=== PATIENT | male | born 1990 | race Caucasian/White ===

== ENCOUNTER → 2018-10-03 | Outpatient (CLI) | payer SELFPAY | END | disposition home or self-care (01) | PROVIDERS: Family Provider Family Medicine; PCP Family Medicine; Referring Provider Nurse Practitioner Primary Care; Visit Provider Nurse Practitioner Primary Care | DX: E66.9 Obesity, unspecified (principal) ==

== ENCOUNTER 2019-03-11 05:40 | Observation (INO) | payer OTHER, SELFPAY ==
[2019-03-11] VITALS (16 sets, daily range): BP systolic 119–160; BP diastolic 46–94; PULSE 80–106; RESP 15–18; TEMP 36.4–37.2; O2SAT 94–100; BMI 31.3; BMI 31.1
--- NOTE | 2019-03-11 | APP_PTH ---
PATIENT: ELOY BOSS LOC: MS3 U#:[id number] AGE/SX: 28/M ROOM: [facility]315 RE03/11/[address]: Dr. Holden Morris MD : 1990 BED: 1 DIS: 03/11/2019 SPEC #: [id number] RECD: 03/12/19 10:13 STATUS: MONICA REQ #: [id number] JEOVANNY: 03/11/19 00:[address]: Holden Morris DEPT: SURGICAL PATHOLOGY RECD BY: Merritt Chong ENTERED: 03/12/19 12:09 SP TYPE: APPENDIX OTHR DR: Dr. Gerald London MD Tissues: Appendix, NOS Procedures: Surgery Specimen Level III HEADER OPERATION: Laparoscopic appendectomy PRE-OP DIAGNOSIS: Appendicitis TISSUE SUBMITTED: Appendix MICROSCOPIC DIAGNOSIS Appendix, appendectomy: Acute appendicitis and periappendicitis. CELINE:nena 03/13/19 MICROSCOPIC DESCRIPTION Slides are reviewed. GROSS DESCRIPTION Received is one container labeled with the patient's name and designated appendix. The specimen consists of an L-shaped appendix measuring 10 cm in length and 0.6 cm in diameter. The attached periappendiceal adipose tissue measures up to 2 cm in width. The serosa is congested. No obvious perforation is identified. The lumen contains purulent fecal material. No fecalith is identified. Mining Engineer sections are submitted in one cassette. / SJ:nena 03/12/19 TC:2 CPT: 68318
--- NOTE | 2019-03-11 05:48 | CT_ITS ---
STUDY: CT ABDOMEN AND PELVIS WITH CONTRAST REASON FOR EXAM: Male, 28 years old. Right lower quadrant abdominal pain with nausea. No previous abdominal surgery. RADIATION DOSAGE (If Supplied By Facility): CTDIvol = ( 14.89 ) mGy, DLP = ( 1042.27 ) mGycm TECHNIQUE: Transaxial images were obtained from the dome of the diaphragm to the symphysis pubis with oral contrast. 100 mL of IV Isovue-300 was administered. Sagittal and coronal images were reconstructed. Individualized dose optimization techniques were used for this CT. COMPARISON: Prior comparison studies are not available for review at this time. FINDINGS: The visualized lung bases are unremarkable. The visualized portions of the heart are within normal limits. Normal liver. Normal gallbladder and extrahepatic biliary system. Normal spleen. Normal pancreas. Normal bilateral adrenal glands. Normal right kidney. Normal left kidney. Normal visualized stomach. There is no evidence for dilated bowel, ascites or pneumoperitoneum. Small bowel has a grossly normal appearance. Stool is visible throughout the colon with scattered diverticula. There appears to be a focal area of abnormal inflammation of the distal appendix where the wall is thin and the appendix is dilated measuring up to 11 mm in greatest transverse dimension. Most of the appendix appears to be normal. Normal abdominal aorta. There is venous distention of the inferior vena cava (IVC). Normal retroperitoneum. Normal urinary bladder. Normal visualized prostate gland. Normal abdominal wall. There is a mild anterolisthesis at L5-S1 with what appears to be unilateral left-sided spondylolysis of L5. The remaining imaged thoracic and lumbar vertebral bodies have normal height and alignment. CT/Abdomen/Pelvis WITH Contrast IMPRESSION: CT findings suggest early acute appendicitis involving the distal appendix. Differential considerations include small mucocele in the distal appendix. There is no evidence for abscess. N.B. : The above information has been verbally conveyed by Karissa Maloney MD to Dr. Sharon MD, on 03/11/2019 08:16:36 (ET). Electronically Signed: Karissa Maloney MD at 8:22 EST , Service support ,
--- NOTE | 2019-03-11 05:56 | ED.DCSUM_ITS ---
- ER Visit Summary Date of Service: 03/11/19 Chief Complaint: Abdominal pain History of Present Illness: The patient is a 28 M who presents with abdominal pain. Pain started throughout the day yesterday. Gradually got worse. He had difficulty sleeping overnight. The pain is all over, but worse in his right lower quadrant. Does not radiate or migrate. It is currently 3 out of 10. Nothing seemed to bring it on or make it worse. Nothing seems to make it better. He did try some Zofran for nausea. He has no other associated symptoms like vomiting, bowel changes, symptoms, fevers. No history of abdominal surgery. Physical Examination: Afebrile and vital signs are unremarkable. Heart regular rate. No respiratory distress. Abdomen shows mild tenderness diffusely, worse in the right lower quadrant. No guarding or rebound. No other pertinent findings on exam. Test Results: Labs, urinalysis, CT pending. Emergency Department Course and Treatment: Patient is an otherwise healthy young male with no surgical history. He has abdominal pain which seems to be worse in the right lower quadrant. I am concerned for appendicitis. Will check labs, urine, and imaging. Patient had Zofran prior to arrival. He declined pain medicine. Will monitor. CBC, CMP, lipase, urinalysis unremarkable. Patient had increasing pain and was treated with morphine. We are awaiting CT results. The oncoming doctor will check the results. Disposition pending CT results. Treatment Plan: As above Disposition: Pending CT results Impression: 1. Abdominal pain This note was generated with [employer] dictation software. It may contain incorrect words, spelling, and punctuation that were not noted in review of the chart prior to signing ED Disposition - Plan for ED Patient: Referrals: Gerald London MD [Primary Care Provider] -
[2019-03-11] MEDS: 0.9% Normal Saline 1,000 ML 1000 ML IV (05:59)
[2019-03-11 06:02] LABS: Absolute Lymphocyte Count 3.01 X10^3/uL (0.83-4.51); Absolute Neutrophil Count 6.9 X10^3/uL (2.0-7.7); Basophil# 0.04 X10^3/uL; Basophil% 0.4 % (0-1); Eosinophils% 0.9 % (0-5); Hematocrit 48.1 % (40-54); Hemoglobin 17.2 g/dL (13.0-16.5); Lymphocyte # 3.01 X10^3/ul (4.0); Lymphocyte % 27.6 % (19-41); Mean Corp Hgb Conc 35.8 g/dL (32-36); Mean Corpuscular Hgb 30.1 pg (27.0-32.0); Mean Corpuscular Volume 84.2 fL (80-94); Monocyte# 0.78 X10^3/uL; Monocyte% 7.2 % (0-10); NRBC Flagged by Analyzer 0 % (0-5); Neutrophil # 6.94 X10^3/uL (2.7-7.7); Neutrophil % 63.6 % (47-70); Platelet Count 182 K/mm3 (150-450); RBC Distribution Width CV 11.9 % (11.6-14.6); RBC Distribution Width SD 35.9 fl (35.1-43.9); Red Blood Count 5.71 M/mm3 (4.6-6.2); White Blood Count 10.9 K/mm3 (4.4-11.0)
[2019-03-11 06:03] LABS: Bacteria 0 SEEN /hpf (None Seen); Mucous, Urine 0 SEEN /hpf (<or=2+); Red Blood Cells-Urine 0 SEEN /hpf (0-5); Squamous Epithelial Cells - UA 0 SEEN /hpf (0-5); White Blood Cells 0 SEEN /hpf (0-5)
[2019-03-11 06:10] LABS: Color, Urine Yellow (Yellow); Glucose, Dipstick Normal (Normal); Ketone-Dipstick Negative (Negative); Leukocyte Esterase-Dipstick Negative /ul (Negative); Nitrite-Dipstick Negative (Negative); Occult Blood-Urine Negative /ul (Negative); Protein-Dipstick Negative (Negative); Urine Bilirubin Dipstick Negative (Negative); Urine Clarity Clear (Clear); Urine Urobilinogen Normal (Normal); Urine pH 6.5 (5.0 - 8.0)
[2019-03-11 06:15] LABS: ALB/GLOB Ratio 1.5 RATIO (0.9-2.4); AST(SGOT) 26 U/L (15-37); Alanine Aminotransfer ALT/SGPT 49 U/L (16-61); Albumin, Serum 4.3 g/dL (3.2-5.0); Alkaline Phosphatase 85 U/L (45-117); Anion Gap 4 (5-15); BUN 19 mg/dL (7-18); BUN/Creat Ratio 15.8 RATIO (10-20); Calcium,Total 8.6 mg/dL (8.5-10.1); Chloride 109 mmol/L (98-107); EST Glomerular Filtration Rate 76 mL/min (>60); Est Glom Filt Rate - Afr Amer 92 mL/min (>60); Estimated Creatinine Clearance 100.59 ml/min; Globulin 2.9 g/dL (2.2-4.2); Glucose 100 mg/dL (74-106); Lipase 145 U/L (73-393); Protein, Total 7.2 g/dL (6.4-8.2); Sodium Level 141 mmol/L (136-145)
[2019-03-11] MEDS: Morphine 4 MG/ML Syringe IV (06:32)
--- NOTE | 2019-03-11 08:26 | NURSING ---
DR IRWIN PAGEMartha
--- NOTE | 2019-03-11 08:50 | NURSING ---
315 after surgery obs ángel acute appendicitis
--- NOTE | 2019-03-11 09:14 | PCM.HP.STD ---
History of Present Illness Date of Admission: 03/11/19 Chief Complaint: abdominal pain The patient is a 28 year old M with the onset of diffuse abdominal pain last night. He noted no recent illnesses viral infections or other difficulties. He ate later in the evening but already started having some mild diffuse periumbilical discomfort. The pain became more severe overnight. He had difficulty sleeping. He presented to [facility] Department earlier this morning. He was noted to have mild diffuse discomfort without point tenderness. Laboratory studies were obtained which were unremarkable. CT scan of the abdomen and pelvis was obtained which was interpreted as a distal appendicolith, distention of the distal appendix and periappendiceal inflammation consistent with early distal appendicitis. Repeat examination by the emergency department physician demonstrated now tenderness towards the right lower quadrant at McBurney's point Past Medical History Allergies Penicillins Allergy (Verified 03/11/19 06:03) Hives Home Medications: Ambulatory Orders Medication Instructions Recorded Multivitamin with Minerals 1 tab PO DAILY 03/11/19 [Multiple Vitamin] Surgical History: - - wisdom teeth and nasal surgery Smoking Status: Never smoker Review of Systems Constitutional: Denies: Chills, Fever, Weight Change HEENT: Denies: Head Aches, Sinus Congestion, Sinus Drainage Cardiovascular: Denies: Chest Pain, Palpitations Respiratory: Denies: Cough, Shortness of breath at rest, Sputum production Gastrointestinal: Reports: Abdominal Pain. Denies: Nausea, Vomiting Genitourinary: Denies: Dysuria Musculoskeletal: Denies: Joint Pain, Joint Tenderness Skin: Denies: Rash, Wounds Neurological: Denies: Numbness, Tingling, Focal weakness Psychiatric: Denies: Anxiety, Depression, Homicidal Ideations, Suicidal Ideations Hematologic/ Lymphatic: Denies: Easy Bruising, Easy Bleeding VTE Information - Inpt Only VTE Present on Admission: No VTE Mechan Device Prophylaxis: SCD's - Physical Exam Vitals/I&O's: Vital Signs Temp Pulse Resp BP Pulse Ox 97.6 F L 93 18 160/94 H 99 03/11/19 08:36 03/11/19 08:44 03/11/19 08:36 03/11/19 08:44 03/11/19 08:36 Oxygen Delivery Method Room Air Weight: 104.7 kg Body Mass Index (BMI) 31.3 General: Alert, Oriented x3, Cooperative HEENT: Atraumatic, PERRLA, EOMI, Normocephalic Neck: Supple, No JVD, Negative Carotid Bruits Lungs: Clear to auscultation, Normal air movement Cardiovascular: Regular rate, No murmurs Abdomen: Bowel Sounds Present, Soft, Non Tender - with minimal tenderness in the lower right quadrant Extremities: No edema, Capillary Refill Less than 3 Seconds Skin: No rashes, No breakdown Musculoskeletal: No Tenderness to Palpation of Joints or Extremities Neurological: Cranial nerves II-XII grossly intact Psych/Mental Status: Normal Affect, Appropriate Laboratory Results 03/11/19 05:46: WBC 10.9, RBC 5.71, Hgb 17.2 H, Hct 48.1, MCV 84.2, MCH 30.1, MCHC 35.8, RDW Std Deviation 35.9, RDW Coeff of Rex 11.9, Plt Count 182, MPV 10.0, Immature Gran % (Auto) 0.300, Neut % (Auto) 63.6, Lymph % (Auto) 27.6, [place] % (Auto) 7.2, Eos % (Auto) 0.9, Baso % (Auto) 0.4, Absolute Neuts (auto) 6.9, Absolute Lymphs (auto) 3.01, Nucleated RBC % 0 03/11/19 05:46: Sodium 141, Potassium 4.0, Chloride 109 H, Carbon Dioxide 28.0, Anion Gap 4 L, BUN 19 H, Creatinine 1.20, Estim Creat Clear Calc 100.59, Est GFR (MDRD) Af Amer 92, Est GFR (MDRD) Non-Af 76, BUN/Creatinine Ratio 15.8, Glucose 100, Calcium 8.6, Total Bilirubin 0.50, AST 26, ALT 49, Alkaline Phosphatase 85, Total Protein 7.2, Albumin 4.3, Globulin 2.9, Albumin/Globulin Ratio 1.5, Lipase 145 03/11/19 05:55: Urine Color Yellow, Urine Clarity Clear, Urine pH 6.5, Ur Specific [place] 1.020, Urine Protein Negative, Urine Glucose (UA) Normal, Urine Ketones Negative, Urine Occult Blood Negative, Urine Nitrite Negative, Urine Bilirubin Negative, Urine Urobilinogen Normal, Ur Leukocyte Esterase Negative, Urine RBC 0 SEEN, Urine WBC 0 SEEN, Ur Squamous Epith Cells 0 SEEN, Urine Bacteria 0 SEEN, Urine Mucus 0 SEEN Current Medications Levofloxacin (Levaquin Iv) 750 mg in 150 mls @ 100 mls/hr IV X1 ONE Stop: 03/11/19 10:42 Assessment/Plan abdominal pain-CT scan consistent with early appendicitis I plan from a laparoscopic appendectomy. The patient consent the risks, benefits, possible complications and alternatives and consents to the planned surgical procedure. The patient is a penicillin allergy will give Levaquin for the perioperative antibiotic. We will place SCDs for DVT prophylaxis.
[2019-03-11] MEDS: levoFLOXacin IV 750 MG/150 ML BAG 100 MG IV (09:25)
[2019-03-11] MEDS: Bupivacaine Mpf 0.5% 30 ML VIAL (10:30)
--- NOTE | 2019-03-11 10:39 | PCM.OPRPT ---
Report of Operation Date of Procedure: 03/11/19 Pre-Operative Diagnosis: early appendicitis Post-Operative Diagnosis: early appendicitis Surgery/Procedure Performed:: laparoscopic appendectomy table saw operator: None Type of Anesthesia:: General Anesthesiologist: Juan Brunson Specimen's removed: appendix Estimated Blood Loss (mL): 10 Fluids Replaced: 400 Description of Procedure: The patient was brought to the operating suite. Sign in was performed verifying patient, site, procedure, position, and DVT prophylaxis with SCDs. Patient received 750 mg of Levaquin due to a penicillin allergy for presumed appendicitis. Following induction of general anesthetic. The patient?s abdomen was prepped and draped in the usual fashion. Timeout was performed verifying patient, site, position. Local anesthetic was injected below the umbilicus. Incision made and dissection carried down to the umbilical root fascia. 2 stay sutures were placed. Incision made in the fascia, the peritoneum entered under direct visualization. A 10 mm Sanches trocar was inserted and secured with the stay sutures. Pneumoperitoneum to 15 mmHg was insufflated. 2 5mm ports were placed in the standard position. Visual inspection revealed some swelling of the distal tip of the appendix with hyperemia of the appendix and some edema. Otherwise intra-abdominal visualized structures were unremarkable. A window was made between the base the mesoappendix and the base of the appendix transected with the intestinal load Endo STEVE stapler at the base of the cecum. The mesoappendix was transected with a harmonic scalpel. The appendix was placed in an Endobag and removed through the umbilical port site. An 0 PDS [id number] suture was placed around the umbilical port site defect. Pneumoperitoneum was reestablished. The appendiceal area was checked for hemostasis. 5mm ports were removed under direct visualization with no signs of bleeding. Pneumoperitoneum was released. The Sanches trocar was removed. The umbilical fascial suture was secured area did skin was closed with interrupted 4-0 Monocryl subcuticular sutures. Steri-Strips and bandages were applied. The patient was brought to recovery room in stable condition.
--- NOTE | 2019-03-11 10:41 | DCINST_ITS ---
Discharge Diet: Light diet - advance as tolerated Discharge Activity: May Not Drive - for 3-5 days or while taking narcotic pain meds. May shower in (days): 1 Suture Line Care: Avoid Pulling/Pushing, Avoid Pinching/Bending Additional Dressing/Incision Instructions:: Keep dressing clean and dry. Change or remove dressing in 2 days. Leave steri strips for 1 week. May protect with a gauze bandaid. Medications to take at Discharge Ibuprofen [Motrin] 600 mg PO Q6H PRN PRN tab 03/11/19 Multivitamin with Minerals [Multiple Vitamin] 1 tab PO DAILY 03/11/19 Oxycodone [Oxyir] 5 - 10 mg PO Q4H PRN PRN 3 Days #10 tab 03/11/19 Allergies/Adverse Reactions: Allergies Penicillins Allergy (Verified 03/11/19 06:03) Hives The following prescriptions were given: Oxycodone [Oxyir] 5 - 10 mg PO Q4H PRN PRN 3 Days #10 tab PRN Reason: Pain Score 6-10/10 Prescription Printed Primary Care Physician: Gerald London MD [Primary Care Provider] - Test Results: Test results from this visit will be discussed in further detail at your follow- up appointment, if applicable. Please Follow Up With: Holden Morris MD - [phone] When: Call to make a follow up appointment in 1 week.
[2019-03-11] MEDS: Lactated Ringers 1,000 ML 100 ML IV (10:57)
[2019-03-11] MEDS: Scopolamine 1mg/72hr Patch 1 PATCH TD (11:26)
[2019-03-11] MEDS: oxyCODONE 5 MG Tablet PO (14:58)
[2019-03-11] MEDS: Ibuprofen 600 MG Tablet PO (16:06)
== END 2019-03-11 18:30 | disposition home or self-care (01) ==
LOC: ED 09:15 → SDC 09:32 → ACINP 03-12 08:37 → SDC 03-12 08:38 → MS3 03-12 08:38
PROVIDERS: Admitting Provider Surgery; Emergency Provider Emergency Medicine; Family Provider Family Medicine; PCP Family Medicine; Referring Provider Surgery; Visit Provider Surgery
PROC: 0DTJ4ZZ Resection of Appendix, Percutaneous Endoscopic Approach (ICD-10-PCS; CPT 44970; principal; 2019-03-11 09:30)
DX: K35.80 Unspecified acute appendicitis (principal); G47.33 Obstructive sleep apnea (adult) (pediatric)
CPT/HCPCS: 44970; 74177; 80053; 81001; 83690; 85025; 88304; 96361; 96374; 99218; 99251; 99285; J7030; J7120; Q9967; A4216; G0378; G0463; J2405

== ENCOUNTER → 2019-08-15 11:27 | Outpatient (CLI) | payer OTHER, SELFPAY ==
[2019-08-15 11:21] VITALS: BMI 31.1
--- NOTE | 2019-08-15 11:27 | RAD_ITS ---
STUDY: X-RAY - LUMBAR SPINE REASON FOR EXAM: Male, 29 years old. Back pain, spasms x 3 days after sneezing TECHNIQUE: 5 view(s) of the lumbar spine were obtained including oblique views. COMPARISON: None FINDINGS: Normal lumbar lordosis. There is no substantial scoliosis. Minimal anterior listhesis of L5 on S1 without spondylolysis. Normal vertebral bodies and endplates. Mild disc space narrowing at the L3-L4, L4-L5 and L5-S1 levels. The soft tissue structures are unremarkable. RAD/L/S Spine Min 4 Views IMPRESSION: Degenerative changes of the spine, as detailed above. Minimal anterior listhesis of L5 on S1. Electronically Signed: Ferny Simmons, at 11:59 EDT , Service support ,
== END ==
PROVIDERS: PCP Family Medicine; Referring Provider Physician Assistant; Visit Provider Physician Assistant
DX: M54.5 Low back pain (principal)
CPT/HCPCS: 72110

== ENCOUNTER → 2019-09-18 | Outpatient (CLI) | payer OTHER, SELFPAY ==
[2019-09-18 13:28] VITALS: BMI 31.1
[2019-09-18 16:15] LABS: Amphetamine Urine VISTA POSITIVE (<1000 ng/mL); Barbiturate Urine VISTA NEGATIVE (< 200 ng/mL); Benzodiazepine Urine VISTA NEGATIVE (< 200 ng/mL); Cocaine Urine VISTA NEGATIVE (< 300 ng/mL); Ecstacy Urine VISTA NEGATIVE (< 500 ng/mL); Methadone Urine VISTA NEGATIVE (< 300 ng/mL); PCP Urine VISTA NEGATIVE (< 25 ng/mL); THC Urine VISTA NEGATIVE (< 50 ng/mL); Vista UDS pH Range 6
== END | disposition home or self-care (01) ==
LOC: LABSPEC 14:20
PROVIDERS: PCP Internal Medicine; Referring Provider Nurse Practitioner Family; Visit Provider Nurse Practitioner Family
DX: F90.9 Attention-deficit hyperactivity disorder, unspecified type (principal); Z79.899 Other long term (current) drug therapy
CPT/HCPCS: 80307

== ENCOUNTER 2019-09-27 10:30 | Outpatient (RCR) | payer OTHER, SELFPAY ==
[2019-08-26 13:45] VITALS: BMI 31.1
[2019-09-02 12:25] VITALS: BMI 31.1
--- NOTE | 2019-09-05 08:03 | HP.PTEVAL_ITS ---
Patient's Visit Information ELOY BOSS is a 29 year old M referred to Physical Therapy by Dr. Brian Leonard MD with a diagnosis of LBP. Date of Evaluation: 09/05/19 Physical Therapist: Dennis Rascon, PT, ATC - Visit Plan Frequency: 2x /Week Duration: 3 Weeks Plan: REIL, core stab ex's, LE stretching and strengthening, postural education, and HEP - Subjective Pt reports he hurt hi s LB approximately one month ago. Pt reports his back was tight, but then he sneezed and his back went out. Pt reports he took a week off of work and the pain eventually improved, but then he came in here and started working out and reinjured his back. 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 Pt reports his back keeps getting better at times, but then always tends to go back out on him. Pt reports recently he took a steroid dose pack and had a massage, and that did help some. Pt reports bending and prolonged sitting increases his pain. Pt reports stretching his hamstrings and Low back helps some. No tingling or numbness in LE's. Pt reports sleep difficulty at first, but not now since his pain is improving. Pt reports difficulty with washing his feet secondary to pain. 0/10 pain at rest, 3/10 pain at worst over the past week. - Pain LBP Pain Intensity (Out of 10): 0 Pain Intensity Range: 3 - Objective Neuro: B LE sensation is WNL to light touch. B patellar reflex= 2/3. MMT: L hip flex and knee flex= 4+/5. All other movements = 5/5 throughout. ROM: L SB and ext are minimally limited and increase pain. Flex WNL increases pain. R SB WNL. Repeated movements: RFIS 10x3 increased pain. MARV 10x2 increased pain. Prone prop on elbows 1 min x2 decreased pain. REIL 10x2 decreased pain - Goals Goal 1:: Decrease LBP x 50% to aid with forward bending activity Goal Time Frame: 2-4 Weeks Goal 2:: Increase L/S ext ROM x 1 grade to aid with decreasing incidence of LBP Goal Time Frame: 2-4 Weeks Goal 3:: I with HEP Goal Time Frame: 2-4 Weeks - Rehabilitation Potential Physical Therapy Diagnosis: Pt has LBP, decreased L/S ROM, and difficulty with work requirements secondary to L/S disc derrangement Rehabilitation Potential: Good - Anticipated Interventions Patient/Client Instruction: Educate patient on: Condition, Plan of Care For the Purpose of:: To improve self management Therapeutic Exercise to Include: Strength training, Endurance training, Body mechanics, Postural training, Dynamic Lumbar Stabilization, Juan Alberto Exercises For the Purpose of:: To decrease pain, To increase ROM, To improve muscle performance and motor function Cryotherapy (ice pack, ice massage): Yes For the Purpose of:: To decrease pain Thank you for the opportunity to evaluate your patient. For Medicare and Medicare HMO plans, please review the plan of care and approve it. It will need to be FAXED BACK to us at [phone] for Medicare purposes. For Medicare only, by signing this I certify the plan of care. Please let me know if there are questions or concerns regarding this plan of care. Physician Signature: Date:
--- NOTE | 2019-09-27 11:03 | HP.PTDCSUM ---
It has been my pleasure to treat ELOY BOSS referred by Dr. Brian Leonard MD, with the diagnosis of LBP for a total of 8 visit(s). Discharge Date: Please see the following information for a summary of their discharge status. Subjective: No pain this date. Pt ready for discharge LBP Pain Intensity (Out of 10): 0 % Improvement: 95 Objective/Function: Pt reports 0/10 LBP. L/S extension ROM is now WNL. Pt is I with HEP. Rx goals achieved Goal 1:: Decrease LBP x 50% to aid with forward bending activity Goal Progress: Goal Met Goal 2:: Increase L/S ext ROM x 1 grade to aid with decreasing incidence of LBP Goal Progress: Goal Met Goal 3:: I with HEP Goal Progress: Goal Met Plan: Discharge If there are questions or concerns regarding this patient's physical therapy, please feel free to call me at [phone]. Thank you for the referral of this patient. Sincerely, Dennis Rascon, PT, ATC
== END 2019-09-27 12:35 | disposition home or self-care (01) ==
LOC: PT 10:30
PROVIDERS: PCP Family Medicine; Referring Provider Family Medicine; Visit Provider Family Medicine
DX: M54.5 Low back pain (principal); G89.29 Other chronic pain
CPT/HCPCS: 97110; 97161; 97164

== ENCOUNTER → 2019-10-30 17:59 | Outpatient (CLI) | payer OTHER, SELFPAY ==
[2019-10-30 10:21] VITALS: BMI 31.1
== END ==
PROVIDERS: PCP Internal Medicine; Referring Provider Nurse Practitioner Family; Visit Provider Nurse Practitioner Family
DX: R06.00 Dyspnea, unspecified (principal); Z20.828 Contact with and (suspected) exposure to other viral communicable diseases
CPT/HCPCS: 87635; 94799; U0003

== ENCOUNTER → 2019-12-18 13:59 | Outpatient (CLI) | payer OTHER, SELFPAY ==
[2019-12-18 13:41] VITALS: BMI 31.1
[2019-12-18 16:11] LABS: Amphetamine Urine VISTA NEGATIVE (<1000 ng/mL); Barbiturate Urine VISTA NEGATIVE (< 200 ng/mL); Benzodiazepine Urine VISTA NEGATIVE (< 200 ng/mL); Cocaine Urine VISTA NEGATIVE (< 300 ng/mL); Ecstacy Urine VISTA NEGATIVE (< 500 ng/mL); Methadone Urine VISTA NEGATIVE (< 300 ng/mL); PCP Urine VISTA NEGATIVE (< 25 ng/mL); THC Urine VISTA NEGATIVE (< 50 ng/mL); Vista UDS pH Range 6
== END ==
PROVIDERS: PCP Internal Medicine; Referring Provider Nurse Practitioner Family; Visit Provider Nurse Practitioner Family
DX: F90.9 Attention-deficit hyperactivity disorder, unspecified type (principal)
CPT/HCPCS: 80307

== ENCOUNTER → 2020-03-18 13:43 | Outpatient (CLI) | payer OTHER, SELFPAY ==
[2020-03-18 13:12] VITALS: BMI 30.4
[2020-03-18 16:20] LABS: Amphetamine Urine VISTA NEGATIVE (<1000 ng/mL); Barbiturate Urine VISTA NEGATIVE (< 200 ng/mL); Benzodiazepine Urine VISTA NEGATIVE (< 200 ng/mL); Cocaine Urine VISTA NEGATIVE (< 300 ng/mL); Ecstacy Urine VISTA NEGATIVE (< 500 ng/mL); Methadone Urine VISTA NEGATIVE (< 300 ng/mL); PCP Urine VISTA NEGATIVE (< 25 ng/mL); THC Urine VISTA NEGATIVE (< 50 ng/mL); Vista UDS pH Range 6
[2020-03-22 14:08] LABS: Amphetamine Positive (.); AmphetamineGC/MS Conf 1210 ng/mL (Cutoff=500)
[2020-03-22 19:57] LABS: Amphetamine Ur Confirm Positive (.); Methamphetamines Negative (Cutoff=500)
== END ==
PROVIDERS: PCP Internal Medicine; Referring Provider Nurse Practitioner Family; Visit Provider Nurse Practitioner Family
DX: F90.9 Attention-deficit hyperactivity disorder, unspecified type (principal)
CPT/HCPCS: 80307

== ENCOUNTER → 2020-07-01 08:31 | Outpatient (CLI) | payer OTHER, SELFPAY ==
[2020-07-01 08:31] VITALS: BMI 30.4
[2020-07-01 12:20] LABS: Absolute Lymphocyte Count 3.76 X10^3/uL (0.83-4.51); Absolute Neutrophil Count 4.2 X10^3/uL (2.0-7.7); Basophil# 0.04 X10^3/uL; Basophil% 0.5 % (0-1); Eosinophils% 1.1 % (0-5); Hematocrit 49.1 % (40-54); Hemoglobin 16.9 g/dL (13.0-16.5); Lymphocyte # 3.76 X10^3/ul (4.0); Mean Corp Hgb Conc 34.4 g/dL (32-36); Mean Corpuscular Hgb 29.6 pg (27.0-32.0); Mean Corpuscular Volume 86.1 fL (80-94); Mean Platelet Vol. 10.6 fl (6.2-12.0); Monocyte# 0.61 X10^3/uL; NRBC Flagged by Analyzer 0 % (0-5); Neutrophil # 4.22 X10^3/uL (2.7-7.7); Neutrophil % 48.2 % (47-70); Platelet Count 180 K/mm3 (150-450); RBC Distribution Width CV 12.2 % (11.6-14.6); RBC Distribution Width SD 38.2 fl (35.1-43.9); White Blood Count 8.8 K/mm3 (4.4-11.0)
[2020-07-01 12:51] LABS: Amphetamine Urine VISTA NEGATIVE (<1000 ng/mL); Barbiturate Urine VISTA NEGATIVE (< 200 ng/mL); Benzodiazepine Urine VISTA NEGATIVE (< 200 ng/mL); Cocaine Urine VISTA NEGATIVE (< 300 ng/mL); Ecstacy Urine VISTA NEGATIVE (< 500 ng/mL); Methadone Urine VISTA NEGATIVE (< 300 ng/mL); PCP Urine VISTA NEGATIVE (< 25 ng/mL); THC Urine VISTA NEGATIVE (< 50 ng/mL); Vista UDS pH Range 6
[2020-07-01 13:05] LABS: ALB/GLOB Ratio 1.3 RATIO (0.9-2.4); AST(SGOT) 17 U/L (15-37); Alanine Aminotransfer ALT/SGPT 50 U/L (16-61); Albumin, Serum 3.9 g/dL (3.2-5.0); Alkaline Phosphatase 69 U/L (45-117); Anion Gap 6 (5-15); BUN 17 mg/dL (7-18); BUN/Creat Ratio 14.4 RATIO (10-20); Calcium,Total 8.8 mg/dL (8.5-10.1); Chloride 104 mmol/L (98-107); Cholesterol 217 mg/dL (200); Creatinine, Serum 1.18 mg/dL (0.70-1.30); EST Glomerular Filtration Rate 77 mL/min (>60); Est Glom Filt Rate - Afr Amer 93 mL/min (>60); Globulin 3.1 g/dL (2.2-4.2); Glucose 94 mg/dL (74-106); High Density Lipoprotein 59 mg/dL; Potassium 3.7 mmol/L (3.5-5.1); Sodium Level 137 mmol/L (136-145); Thyroid Stim Hormone (TSH) 1.76 uIU/mL (0.358-3.74); Triglycerides 148 mg/dL; Very Low Density Lipoprotein 30 mg/dL (5-40)
== END ==
PROVIDERS: PCP Internal Medicine; Referring Provider Nurse Practitioner Family; Visit Provider Nurse Practitioner Family
DX: Z00.00 Encounter for general adult medical examination without abnormal findings (principal); F90.9 Attention-deficit hyperactivity disorder, unspecified type; E56.9 Vitamin deficiency, unspecified
CPT/HCPCS: 36415; 80053; 80061; 80307; 82306; 84443; 85025

== ENCOUNTER 2020-07-03 08:51 | Outpatient (RCR) | payer OTHER, SELFPAY ==
[2020-07-01 08:31] VITALS: BMI 30.4
== END 2020-08-26 23:59 ==
LOC: IMMUN 08:51
PROVIDERS: PCP Nurse Practitioner Family; Referring Provider Family Medicine; Visit Provider Family Medicine
DX: Z23 Encounter for immunization (principal)
CPT/HCPCS: 0001A; 0002A; 91300

== ENCOUNTER → 2020-12-16 | Outpatient (CLI) | payer OTHER, SELFPAY ==
[2020-12-16 16:07] LABS: Amphetamine Urine VISTA POSITIVE (<1000 ng/mL); Barbiturate Urine VISTA NEGATIVE (< 200 ng/mL); Benzodiazepine Urine VISTA NEGATIVE (< 200 ng/mL); Cocaine Urine VISTA NEGATIVE (< 300 ng/mL); Ecstacy Urine VISTA NEGATIVE (< 500 ng/mL); Methadone Urine VISTA NEGATIVE (< 300 ng/mL); PCP Urine VISTA NEGATIVE (< 25 ng/mL); THC Urine VISTA NEGATIVE (< 50 ng/mL); Vista UDS pH Range 4
== END | disposition home or self-care (01) ==
LOC: LABSPEC 14:10
PROVIDERS: PCP Nurse Practitioner Family; Referring Provider Nurse Practitioner Family; Visit Provider Nurse Practitioner Family
DX: F90.9 Attention-deficit hyperactivity disorder, unspecified type (principal)
CPT/HCPCS: 80307

== ENCOUNTER → 2020-12-22 | Outpatient (CLI) | payer OTHER, SELFPAY | END | disposition home or self-care (01) | PROVIDERS: PCP Nurse Practitioner Family; Referring Provider Physician Assistant Surgical; Visit Provider Physician Assistant Surgical | DX: R05.9 Cough, unspecified (principal) | CPT/HCPCS: 87635; U0005; U0003 ==

== ENCOUNTER 2021-04-07 14:18 | Outpatient (CLI) | payer OTHER, SELFPAY ==
[2021-04-07 15:17] LABS: Amphetamine Urine VISTA POSITIVE (<1000 ng/mL); Barbiturate Urine VISTA NEGATIVE (< 200 ng/mL); Benzodiazepine Urine VISTA NEGATIVE (< 200 ng/mL); Cocaine Urine VISTA NEGATIVE (< 300 ng/mL); Ecstacy Urine VISTA NEGATIVE (< 500 ng/mL); Methadone Urine VISTA NEGATIVE (< 300 ng/mL); PCP Urine VISTA NEGATIVE (< 25 ng/mL); THC Urine VISTA NEGATIVE (< 50 ng/mL); Vista UDS pH Range 6
== END 2021-04-07 23:59 | disposition short-term general hospital (02) ==
LOC: LABSPEC 14:21
PROVIDERS: PCP Nurse Practitioner Family; Referring Provider Nurse Practitioner Family; Visit Provider Nurse Practitioner Family
DX: F90.9 Attention-deficit hyperactivity disorder, unspecified type (principal); S39.012D Strain of muscle, fascia and tendon of lower back, subsequent encounter
CPT/HCPCS: 80307

== ENCOUNTER 2021-07-03 08:39 | Outpatient (CLI) | payer OTHER, SELFPAY ==
[2021-07-03 12:39] LABS: Absolute Lymphocyte Count 1.73 X10^3/uL (0.83-4.51); Absolute Neutrophil Count 2.2 X10^3/uL (2.0-7.7); Basophil# 0.04 X10^3/uL; Basophil% 0.9 % (0-1); Eosinophil# 0.07 X10^3/uL; Eosinophils% 1.6 % (0-5); Hematocrit 47.1 % (40-54); Hemoglobin 16.9 g/dL (13.0-16.5); Lymphocyte # 1.73 X10^3/ul (0.83-4.51); Lymphocyte % 39.1 % (19-41); Mean Corp Hgb Conc 35.9 g/dL (32-36); Mean Corpuscular Hgb 30.9 pg (27.0-32.0); Mean Corpuscular Volume 86.1 fL (80-94); Mean Platelet Vol. 10.6 fl (6.2-12.0); Monocyte# 0.41 X10^3/uL; Monocyte% 9.3 % (0-10); NRBC Flagged by Analyzer 0 % (0-5); Neutrophil # 2.17 X10^3/uL (2.7-7.7); Neutrophil % 48.9 % (47-70); Platelet Count 185 K/mm3 (150-450); RBC Distribution Width CV 12.3 % (11.6-14.6); RBC Distribution Width SD 38.8 fl (35.1-43.9); Red Blood Count 5.47 M/mm3 (4.6-6.2); White Blood Count 4.4 K/mm3 (4.4-11.0)
[2021-07-03 13:10] LABS: ALB/GLOB Ratio 1.4 RATIO (0.9-2.4); AST(SGOT) 28 U/L (15-37); Alanine Aminotransfer ALT/SGPT 53 U/L (16-61); Albumin, Serum 4.2 g/dL (3.2-5.0); Alkaline Phosphatase 75 U/L (45-117); Anion Gap 6 (5-15); BUN 21 mg/dL (7-18); BUN/Creat Ratio 15.7 RATIO (10-20); Calcium,Total 8.5 mg/dL (8.5-10.1); Chloride 107 mmol/L (98-107); Cholesterol 226 mg/dL (200); Creatinine, Serum 1.34 mg/dL (0.70-1.30); EST Glomerular Filtration Rate 66 mL/min (>60); Est Glom Filt Rate - Afr Amer 80 mL/min (>60); Globulin 3.1 g/dL (2.2-4.2); Glucose 75 mg/dL (74-106); High Density Lipoprotein 46 mg/dL; Potassium 4.2 mmol/L (3.5-5.1); Protein, Total 7.3 g/dL (6.4-8.2); Sodium Level 140 mmol/L (136-145); Thyroid Stim Hormone (TSH) 0.92 uIU/mL (0.358-3.74); Triglycerides 111 mg/dL; Very Low Density Lipoprotein 22 mg/dL (5-40)
== END 2021-07-03 23:59 | disposition home or self-care (01) ==
LOC: BIMLAB 08:39
PROVIDERS: PCP Nurse Practitioner Family; Visit Provider Nurse Practitioner Family
DX: Z00.00 Encounter for general adult medical examination without abnormal findings (principal)
CPT/HCPCS: 36415; 80053; 80061; 84443; 85025

== ENCOUNTER → 2021-08-05 | Outpatient (CLI) | payer OTHER, SELFPAY ==
--- NOTE | 2021-08-05 09:17 | RAD_ITS ---
EXAM: XR ORTHOPANTOGRAM CLINICAL INDICATION: tmj syndrome TECHNIQUE: Panorex view of the mandible. This report was created using [employer] report generation technology. COMPARISON: None. FINDINGS: DENTAL: No acute findings. BONES/JOINTS: Symmetric alignment of the temporomandibular joints on open mouth and closed mouth views. No fracture. No sclerotic or destructive changes observed. SOFT TISSUES: Unremarkable. No soft tissue swelling or gas. No radiopaque foreign body. RAD/Temporo-Mandibular Jt Alessio IMPRESSION: Symmetric alignment of the temporomandibular joints on open mouth and closed mouth views. MRI is considered standard method for evaluation of TMJ dysfunction for evaluation of relationship of disc and adjacent articular surface. Electronically Signed: Israel Lynch MD (Brooks) at 8:22 EDT ,
== END | disposition home or self-care (01) ==
LOC: MTRAD 09:16
PROVIDERS: PCP Nurse Practitioner Family; Referring Provider Nurse Practitioner Family; Visit Provider Nurse Practitioner Family
DX: M26.629 Arthralgia of temporomandibular joint, unspecified side (principal)
CPT/HCPCS: 70330

== ENCOUNTER 2021-09-10 19:44 | Emergency (ER) | payer OTHER, SELFPAY ==
[2021-09-10 19:45] VITALS: BP 127/87; PULSE 99; RESP 18; TEMP 36.6; O2SAT 100; BMI 31.1
--- NOTE | 2021-09-10 20:08 | EDS_ITS ---
HPI History of Present Illness HPI Narrative: Insect sting left lower leg. Chief Complaint: Bite Informant: patient and spouse/S.O. Onset/Context/Timing Onset: Days Context: Gradual Onset Timing: Continuous Current Severity: Mild Maximum Severity: Mild Associated Symptoms Associated Symptoms: Negative for Parasthesia, Weakness or Loss of Funtion Narrative Narrative: 31-year-old male past medical history of reflux and ADHD. Thinks he was stung by a bee in his boot on Tuesday. He really doing much other did not look bad. Since that time is gotten more red, swollen and tender. No fever or chills. Denies other complaints. Prior similar symptoms: No Recent Illness/Hospitalization: No ROS ROS ED ROS Narrative Left lower leg red and swollen. Review of Systems ROS Unobtainable: Denies due to encephalopathy Constitutional Constitutional ED: Denies chills or fever(s) Eyes Eyes: Denies blurry vision ENT ENT ED: Denies ear pain Cardiovascular Cardiovascular: Denies chest pain Respiratory/Chest Respiratory/Chest: Denies cough Gastrointestinal Gastrointestinal: Denies abdominal pain Genitourinary Genitourinary ED: Denies dysuria Musculoskeletal Musculoskeletal: Denies arthralgias Integumentary Reports rash; Denies abscess or Abrasions Neurologic Neurologic: Denies headache(s) Psychiatric Psychiatric: Denies anxiety Endocrine Endocrinology: Denies polydipsia Hematologic/Lymphatic Hematologic/Lymphatic: Denies easy bleeding Allergic/Immunologic Allergic/Immunologic ED: Denies mouth swelling PFSH PFS Medical History Encounter for preventative adult health care examination History of deviated nasal septum Sleep apnea TMJ syndrome Home Medications multivitamin with minerals 1 tab PO DAILY 03/11/19 [History Last Taken Unknown] omega 7-ckl-oqa-fish oil 60 mg-90 mg-500 mg capsule (Fish Oil) 1 cap PO DAILY 05/08/19 [History Last Taken Unknown] albuterol sulfate 90 mcg/actuation aerosol inhaler (ProAir HFA) 1 - 2 puff inhalation Q6H PRN shortness of breath or wheezing #8.5 grams 11/02/19 [Rx Last Taken Unknown] cyclobenzaprine 10 mg tablet 5 - 10 mg PO TID PRN muscle spasm #30 tabs 06/24/20 [Rx Last Taken Unknown] omeprazole 20 mg capsule,delayed release 20 mg PO DAILY #90 caps 08/25/20 [Rx Last Taken Unknown] ibuprofen 800 mg tablet 800 mg PO Q8H PRN pain #90 tabs 12/16/20 [Rx Last Taken Unknown] methylprednisolone 4 mg tablets in a dose pack (Medrol (Iraj)) See Rx Instructions PO PER PKG DIR #21 tabs 07/21/21 [Rx Last Taken Unknown] cephalexin 500 mg capsule 500 mg PO Q6 7 days #28 caps 09/10/21 [Rx Last Taken Unknown] Allergy/AdvReac Type Severity Reaction Status Date / Time Penicillins Allergy Hives Verified 09/10/21 19:47 Family History Father Narcolepsy and cataplexy Asthma Grandfather Alcoholism Myocardial infarction Grandmother Myocardial infarction osteporosis Thyroid disorder Mother High cholesterol Surgical History History of appendectomy Social History Smoking Status: Never smoker alcohol intake: current alcohol intake frequency: a few times a week substance use type: does not use what type of physical activity do you participate in: running and weight training frequency: 3-4 times per week EXAM Physical Exam Narrative Exam Narrative: 31-year-old male no acute distress vital signs stable afebrile. HEENT exam normal. Lungs are clear. Heart regular rhythm. Abdomen soft nontender. Moving all 4 extremities. Left lower leg there is an area of redness consistent with either a local allergic reaction or cellulitis. There is no lymphangitic streaking. There is no inguinal lymphadenopathy. Const Vital Signs: 09/10/21 19:45 09/10/21 19:54 Temperature 97.9 F Temperature Source Temporal Pulse Rate 99 Respiratory Rate 18 Respiratory Effort Normal Blood Pressure 127/87 H Blood Pressure Mean 100 Pulse Ox 100 Oxygen Delivery Method Room Air Positive well nourished and well developed; Negative for cachectic or unkempt General Appearance ED: well developed; Negative for unkempt or cachectic Nutritional Appearance: Negative for cachectic HEENT Reports moist mucous membranes normocephalic and atraumatic; Negative for trauma or tenderness Eyes PERRL Neck full ROM and no lymphadenopathy Resp normal respiratory effort and clear to auscultation bilaterally Auscultation: Negative for rales, rhonchi or wheezes Cardio regular rate, regular rhythm, S1 normal heart sound, S2 normal heart sound and no murmurs Rate: Negative for bradycardia Rhythm: Negative for abnormal rhythm GI non-tender, non-distended and no masses Inspection: Negative for abdominal distention Auscultation: normoactive bowel sounds Palpation: soft; Negative for tender Extremity normal to inspection and full ROM Extremity Narrative: Except left lower extremity redness which may be a secondary infection and cellulitis versus a local allergic reaction. General Extremety ED: Yes edema and tenderness; Negative for deformity General Extremity: edema; Negative for deformity Neuro oriented x3 Sensorium / Orientation: alert Psych Appearance: Negative for unkempt Skin skin turgor normal Rashes: No no rashes Trauma: Negative for abrasion or laceration MDM MDM MDM Narrative Medical decision making narrative: 31-year-old male bee sting on Tuesday getting worse, redness swelling now. Concern is for secondary infection. It is warm and tender to the touch. He will be started on Keflex given his first dose here and 4 times a day for a week and follow-up if not improving or return if worse. Discharge Plan Triage Chief Complaint: Bite ED Provider: Salvador Jeffers Dx/Rx/DC Orders Clinical Impression: Bee sting, Cellulitis Instructions: Insect Bites and Stings, ED Cellulitis Prescriptions: New cephalexin 500 mg capsule 500 mg PO Q6 7 Days Qty: 28 0RF No Action omega 3-wiz-han-fish oil [Fish Oil] 60-90-500 mg capsule 1 cap PO DAILY cyclobenzaprine 10 mg tablet 5 - 10 mg PO TID PRN (Reason: muscle spasm) Qty: 30 0RF ibuprofen 800 mg tablet 800 mg PO Q8H PRN (Reason: pain) Qty: 90 1RF multivitamin with minerals 1 EACH tablet 1 tab PO DAILY albuterol sulfate [ProAir HFA] 90 mcg/actuation HFA aerosol inhaler 1 - 2 puff inhalation Q6H PRN (Reason: shortness of breath or wheezing) Qty: 8.5 1RF omeprazole 20 mg capsule,delayed release(DR/EC) 20 mg PO DAILY Qty: 90 3RF methylprednisolone [Medrol (Iraj)] 4 mg tablets,dose pack See Rx Instructions PO PER PKG DIR Qty: 21 0RF Rx Instructions: PO PER PKG DIR Primary Care Provider: Kevin Tate NP Referrals: Kevin Tate NP, [employer]URITIES UNDERWRITER-C [Primary Care Provider] - 1 Week if not improving Activity Restrictions/Additional Instructions: This may be secondary to a local allergic reaction versus a insect sting or bite with a secondary infection. Ice and elevate. Motrin for pain and swelling. Benadryl for local reaction. Keflex the antibiotic 1 pill 4 times a day till gone for 1 week. This should progressively improve if its not get reevaluated. Disposition Disposition: Home, Self Care
[2021-09-10] MEDS: Cephalexin 250 MG Capsule 500 MG PO (20:10)
== END 2021-09-10 20:24 | disposition home or self-care (01) ==
PROVIDERS: Emergency Provider Emergency Medicine; PCP Nurse Practitioner Family; Visit Provider Emergency Medicine
DX: T63.444A Toxic effect of venom of bees, undetermined, initial encounter (principal); L03.116 Cellulitis of left lower limb; F90.9 Attention-deficit hyperactivity disorder, unspecified type; K21.9 Gastro-esophageal reflux disease without esophagitis
CPT/HCPCS: 99283

== ENCOUNTER → 2022-01-15 | Outpatient (CLI) | payer OTHER, SELFPAY ==
[2022-01-15 16:02] LABS: Amphetamine Urine VISTA NEGATIVE (<1000 ng/mL); Barbiturate Urine VISTA NEGATIVE (< 200 ng/mL); Benzodiazepine Urine VISTA NEGATIVE (< 200 ng/mL); Cocaine Urine VISTA NEGATIVE (< 300 ng/mL); Ecstacy Urine VISTA NEGATIVE (< 500 ng/mL); Methadone Urine VISTA NEGATIVE (< 300 ng/mL); PCP Urine VISTA NEGATIVE (< 25 ng/mL); THC Urine VISTA NEGATIVE (< 50 ng/mL); Vista UDS pH Range 5
== END | disposition home or self-care (01) ==
LOC: LABSPEC 15:08
PROVIDERS: PCP Nurse Practitioner Family; Referring Provider Nurse Practitioner Family; Visit Provider Nurse Practitioner Family
DX: F90.9 Attention-deficit hyperactivity disorder, unspecified type (principal)
CPT/HCPCS: 80307

== ENCOUNTER 2022-02-24 08:06 | Outpatient (CLI) | payer OTHER, SELFPAY ==
--- NOTE | 2022-02-24 08:08 | CT_ITS ---
STUDY: CT ABDOMEN AND PELVIS WITH CONTRAST REASON FOR EXAM: Male, 31 years old. Abdominal pain FOLLOWING APPY SURGERY 2018 RADIATION DOSAGE (If Supplied By Facility): CTDIvol = ( 14.69 ) mGy, DLP = ( 1252.77 ) mGycm TECHNIQUE: Transaxial images were obtained from the dome of the diaphragm to the symphysis pubis with oral contrast. Oral and amp; IV Readi-CAT and amp; 100mL Isovue-370 was administered. Sagittal and coronal images were reconstructed. Individualized dose optimization techniques were used for this CT. COMPARISON: Comparison is made with prior study dated 03/11/2019. FINDINGS: The visualized lung bases are unremarkable. The visualized portions of the heart are within normal limits. Normal liver. Normal gallbladder and extrahepatic biliary system. Normal spleen. Normal pancreas. Normal bilateral adrenal glands. Normal right kidney. Normal left kidney. There is a small hiatal hernia. Normal small intestine. Moderate amount of fecal material is seen. There are surgical clips in the region of the appendix consistent with a prior appendectomy. Normal abdominal aorta. Normal inferior vena cava. Normal retroperitoneum. Normal urinary bladder. There is enlargement of the prostate gland. This measures 5.8 cm x 4.3 cm. Normal abdominal wall. Stable minimal anterior listhesis of L5 on S1 with a spondylolysis of the pars interarticularis of the L5 vertebra. CT/Abdomen/Pelvis WITH Contrast IMPRESSION: Status post appendectomy. Moderate amount of fecal material is seen in colon. Electronically Signed: Ferny Simmons MD at 14:01 EST ,
[2022-02-24 17:15] LABS: PSA,Total- Diagnostic 0.83 ng/mL (0.0-4.0)
== END 2022-02-24 23:59 | disposition home or self-care (01) ==
PROVIDERS: PCP Nurse Practitioner Family; Referring Provider Nurse Practitioner Family; Visit Provider Nurse Practitioner Family
DX: R10.9 Unspecified abdominal pain (principal); K44.9 Diaphragmatic hernia without obstruction or gangrene; Z90.89 Acquired absence of other organs; M43.17 Spondylolisthesis, lumbosacral region; N40.0 Benign prostatic hyperplasia without lower urinary tract symptoms
CPT/HCPCS: 36415; 74177; 84153; Q9967

== ENCOUNTER → 2022-07-22 | Outpatient (CLI) | payer OTHER, SELFPAY ==
[2022-07-22 15:26] LABS: Absolute Lymphocyte Count 2.02 X10^3/uL (0.83-4.51); Absolute Neutrophil Count 2.2 X10^3/uL (2.0-7.7); Basophil# 0.04 X10^3/uL; Basophil% 0.8 % (0-1); Eosinophil# 0.06 X10^3/uL; Eosinophils% 1.2 % (0-5); Hematocrit 47.3 % (40-54); Lymphocyte # 2.02 X10^3/ul (0.83-4.51); Lymphocyte % 40.8 % (19-41); Mean Corp Hgb Conc 35.9 g/dL (32-36); Mean Corpuscular Hgb 31.1 pg (27.0-32.0); Mean Corpuscular Volume 86.5 fL (80-94); Mean Platelet Vol. 10.5 fl (6.2-12.0); Monocyte# 0.62 X10^3/uL; Monocyte% 12.5 % (0-10); NRBC Flagged by Analyzer 0 % (0-5); Neutrophil % 44.5 % (47-70); Platelet Count 173 K/mm3 (150-450); RBC Distribution Width CV 12.1 % (11.6-14.6); RBC Distribution Width SD 38.4 fl (35.1-43.9); Red Blood Count 5.47 M/mm3 (4.6-6.2)
[2022-07-22 16:00] LABS: Albumin, Serum 3.9 g/dL (3.2-5.0); BUN 21 mg/dL (7-18); BUN/Creat Ratio 17.1 RATIO (10-20); Creatinine, Serum 1.23 mg/dL (0.70-1.30); EST Glomerular Filtration Rate 73 mL/min (>60); Est Glom Filt Rate - Afr Amer 88 mL/min (>60); Glucose 102 mg/dL (74-106)
[2022-07-22 16:01] LABS: ALB/GLOB Ratio 1.3 RATIO (0.9-2.4); AST(SGOT) 25 U/L (15-37); Alanine Aminotransfer ALT/SGPT 47 U/L (16-61); Alkaline Phosphatase 94 U/L (45-117); Anion Gap 8 (5-15); Calcium,Total 8.6 mg/dL (8.5-10.1); Chloride 105 mmol/L (98-107); Cholesterol 212 mg/dL (200); Globulin 3.1 g/dL (2.2-4.2); High Density Lipoprotein 39 mg/dL; Potassium 3.7 mmol/L (3.5-5.1); Sodium Level 139 mmol/L (136-145); Thyroid Stim Hormone (TSH) 0.99 uIU/mL (0.358-3.74); Triglycerides 173 mg/dL; Very Low Density Lipoprotein 35 mg/dL (5-40)
== END | disposition home or self-care (01) ==
LOC: BIMLAB 14:05
PROVIDERS: PCP Nurse Practitioner Family; Referring Provider Nurse Practitioner Family; Visit Provider Nurse Practitioner Family
DX: Z00.00 Encounter for general adult medical examination without abnormal findings (principal)
CPT/HCPCS: 36415; 80053; 80061; 84443; 85025

== ENCOUNTER 2022-11-23 22:51 | Emergency (ER) | payer OTHER, SELFPAY ==
[2022-11-23 22:52] VITALS: BP 143/94; PULSE 109; RESP 17; TEMP 36.2; O2SAT 97; BMI 32.2
--- NOTE | 2022-11-23 23:14 | EKG12_ITS ---
Test Reason : CP Blood Pressure : / mmHG Vent. Rate : 115 BPM Atrial Rate : 115 BPM P-R Int : 150 ms QRS Dur : 094 ms QT Int : 338 ms P-R-T Axes : 034 055 003 degrees QTc Int : 467 ms Sinus tachycardia Otherwise normal ECG Confirmed by FRANCISCO MONIQUE, STEFANY ([id number]), index editor UMER PRORAS ([id number]) on 11/26/2022 1:01:03 PM Referred By: Confirmed By:STEFANY SINGH MD
--- NOTE | 2022-11-23 23:18 | RAD_ITS ---
INDICATION: chest pain EXAMINATION/TECHNIQUE: X-RAY - XR Chest 1 View COMPARISON: FINDINGS: LINES/DEVICES: None. LUNGS: No consolidation, edema or effusion. No pneumothorax. MEDIASTINUM AND CARDIOVASCULAR STRUCTURES: Cardiac silhouette not enlarged. Central airways and mediastinal contour are unremarkable. BONES AND SOFT TISSUES: Unremarkable. RAD/Chest 1 View (Portable) IMPRESSION: No radiographic evidence of acute cardiopulmonary disease. Electronically Signed: eJaneth Sequeira MD at 23:37 EDT Reading Location ID and State: [id number] / Tel , Service support ,
--- NOTE | 2022-11-23 23:22 | EDS_ITS ---
HPI History of Present Illness Chief Complaint: Chest Pain Informant: patient and spouse/S.O. Narrative Narrative: 32-year-old male presenting to the emergency room with chief complaint of intermittent left-sided chest pain. Patient states that today he was very hot outside. He did some elliptical and then a upper body/chest weightlifting routine. He ate dinner consisting of a salad with chicken. He does have reflux but notes that this is different than his normal reflux symptoms of belching and indigestion. He states that he started noticing a intermittent double grabbing pain over the left chest. It gradually intensified. He took his blood pressure which seemed up a little bit and his heart rate was elevated. Currently has no symptoms. He denies any radiation of the pain. No arm or leg symptoms. No shortness of breath or jaw pain. He has had no change in exercise tolerance. [facility] Medical History BPH (benign prostatic hyperplasia) Chronic abdominal pain Encounter for preventative adult health care examination History of deviated nasal septum Pre-syncope Sleep apnea TMJ syndrome Home Medications multivitamin with minerals 1 tab PO DAILY 03/11/19 [History Last Taken Unknown] omega 7-swk-dyf-fish oil 60 mg-90 mg-500 mg capsule (Fish Oil) 1 cap PO DAILY 05/08/19 [History Last Taken Unknown] cyclobenzaprine 10 mg tablet 5 - 10 mg (0.5 - 1 x 10 mg) PO TID PRN muscle spasm #30 tabs 06/24/20 [Rx Last Taken Unknown] ibuprofen 800 mg tablet 800 mg PO Q8H PRN pain #90 tabs 12/16/20 [Rx Last Taken Unknown] omeprazole 20 mg capsule,delayed release 20 mg PO DAILY #90 caps 09/22/22 [Rx Last Taken Unknown] Allergy/AdvReac Type Severity Reaction Status Date / Time Penicillins Allergy Hives Verified 11/23/22 22:56 Family History Father Narcolepsy and cataplexy Asthma Grandfather Alcoholism Myocardial infarction Grandmother Myocardial infarction osteporosis Thyroid disorder Mother High cholesterol Surgical History History of appendectomy Social History Smoking Status: Never smoker alcohol intake: current alcohol intake frequency: a few times a week substance use type: does not use what type of physical activity do you participate in: running and weight training frequency: 3-4 times per week ROS ROS ED Constitutional Constitutional ED: Denies chills, fever(s) or weight loss Eyes Eyes: Denies change in vision or diplopia ENT ENT ED: Denies ear pain, rhinorrhea or sore throat Cardiovascular Cardiovascular: Reports chest pain; Denies orthopnea, palpitations or racing heartbeat Respiratory/Chest Respiratory/Chest: Denies cough, dyspnea or orthopnea Gastrointestinal Gastrointestinal: Denies abdominal pain, diarrhea, nausea or vomiting Genitourinary Genitourinary ED: Denies dysuria, hematuria or urinary frequency Musculoskeletal Musculoskeletal: Denies arthralgias, back pain, myalgias or neck pain Integumentary Denies abscess or rash Neurologic Neurologic: Denies headache(s) or weakness Psychiatric Psychiatric: Denies anxiety, depression, suicidal ideation or suicidal thoughts Endocrine Endocrinology: Denies polydipsia, polyphagia or polyuria Allergic/Immunologic Allergic/Immunologic ED: Denies mouth swelling, tongue swelling or urticaria EXAM Physical Exam Const Vital Signs: 11/23/22 22:52 11/23/22 22:54 11/23/22 23:54 Temperature 97.1 F L Temperature Source Temporal Pulse Rate 109 H 86 Respiratory Rate 17 17 Respiratory Effort Normal Non-Labored Blood Pressure 143/94 H 124/84 H Blood Pressure Mean 110 Pulse Ox 97 94 Oxygen Delivery Method Room Air Positive well nourished and well developed General Appearance ED: well developed HEENT Reports normocephalic, head/scalp atraumatic and moist mucous membranes Eyes PERRL and EOMs intact bilaterally Neck no lymphadenopathy, supple and no JVD Chest Wall inspection of chest normal and palpation of chest normal Resp normal respiratory effort and clear to auscultation bilaterally Cardio regular rate, regular rhythm and no murmurs GI normal to inspection, nondistended, normoactive bowel sounds and non-tender Palpation: soft Back/Spine no CVA tenderness and normal ROM Extremity normal to inspection General Extremety ED: Negative for edema General Extremity: Negative for edema Neuro oriented x3 and CN's II-XII intact bilaterally Sensorium / Orientation: alert Motor Exam: strength 5/5 throughout Psych mental status grossly normal Mood & Affect: Negative for depressed or tearful Skin no rashes or lesions noted and no wounds MDM MDM MDM Narrative Medical decision making narrative: During my examinations the patient's heart rate all at rest were 80-98. CBC and BMP are normal except for BUN of 24 and creatinine 1.4. Troponin is normal at 4. This is approximately 4 to 5 hours after the onset of symptoms. D-dimer is negative. My interpretation of chest x-ray is no acute process - normal mediastinal silhouette. Radiology concurs. Patient's symptoms are atypical. At this point I do not think the patient is having ACS, pulmonary embolism, aortic dissection or aneurysm or other intrathoracic emergency. I believe that this is most likely musculoskeletal in nature. Would recommend hydration tonight as there could be a component of slight dehydration. Patient to return if worsening or concerns. He is to follow-up with primary care History & Record Review Discussion w/independent historian: Patient and Significant other Lab Data Attestation: I reviewed the patient's lab results. Labs: Laboratory Results - last 24 hr 11/23/22 22:50 WBC 8.9 RBC 5.61 Hgb 16.9 H Hct 47.8 MCV 85.2 MCH 30.1 MCHC 35.4 RDW Std Deviation 37.1 RDW Coeff of Rex 12.0 Plt Count 189 MPV 10.3 Immature Gran % (Auto) 0.300 Neut % (Auto) 57.3 Lymph % (Auto) 31.6 [place] % (Auto) 8.3 Eos % (Auto) 1.7 Baso % (Auto) 0.8 Absolute Neuts (auto) 5.1 Absolute Lymphs (auto) 2.81 Nucleated RBC % 0 D-Dimer Quant (PE/DVT) < 0.27 L Sodium 139 Potassium 3.6 Chloride 104 Carbon Dioxide 27.0 Anion Gap 8 BUN 24 H Creatinine 1.40 H Estim Creat Clear Calc 83.14 Est GFR (MDRD) Af Amer 75 Est GFR (MDRD) Non-Af 62 BUN/Creatinine Ratio 17.1 Glucose 88 Calcium 8.9 Troponin I High Sens 4 Radiography Diagnostic Testing: Clinical Impression(s) from Imaging Studies Chest X-Ray 11/23/22 23:18 IMPRESSION: No radiographic evidence of acute cardiopulmonary disease. Electronically Signed: Jeaneth Sequeira MD at 23:37 EDT , EKG Initial EKG: Attestation: I personally reviewed and interpreted this EKG as follows: Comments: Sinus tachycardia with a ventricular rate of 115 bpm. No concerning features of ACS noted. Discharge Plan Triage Chief Complaint: Chest Pain ED Provider: Roni Mao Dx/Rx/DC Orders Clinical Impression: Chest pain Instructions: ED Chest Pain, Uncertain Cause Prescriptions: No Action omega 9-jkp-hpk-fish oil [Fish Oil] 60-90-500 mg capsule 1 cap PO DAILY cyclobenzaprine 10 mg tablet 5 - 10 mg PO TID PRN (Reason: muscle spasm) Qty: 30 0RF ibuprofen 800 mg tablet 800 mg PO Q8H PRN (Reason: pain) Qty: 90 1RF multivitamin with minerals 1 EACH tablet 1 tab PO DAILY omeprazole 20 mg capsule,delayed release(DR/EC) 20 mg PO DAILY Qty: 90 1RF Primary Care Provider: Care Physician,No Primary Referrals: Kevin Tate NP, [employer]IP[employer] APPRENTICE-C [Med Staff - Adv Practice Prof] - 1-2 Weeks Disposition Disposition: Home, Self Care Discharge Date/Time: 11/24/22 00:14
[2022-11-23 23:25] LABS: Absolute Lymphocyte Count 2.81 X10^3/uL (0.83-4.51); Absolute Neutrophil Count 5.1 X10^3/uL (2.0-7.7); Basophil# 0.07 X10^3/uL; Basophil% 0.8 % (0-1); Eosinophil# 0.15 X10^3/uL; Eosinophils% 1.7 % (0-5); Hematocrit 47.8 % (40-54); Hemoglobin 16.9 g/dL (13.0-16.5); Lymphocyte # 2.81 X10^3/ul (0.83-4.51); Lymphocyte % 31.6 % (19-41); Mean Corp Hgb Conc 35.4 g/dL (32-36); Mean Corpuscular Hgb 30.1 pg (27.0-32.0); Mean Corpuscular Volume 85.2 fL (80-94); Mean Platelet Vol. 10.3 fl (6.2-12.0); Monocyte# 0.74 X10^3/uL; Monocyte% 8.3 % (0-10); NRBC Flagged by Analyzer 0 % (0-5); Neutrophil % 57.3 % (47-70); Platelet Count 189 K/mm3 (150-450); RBC Distribution Width SD 37.1 fl (35.1-43.9); Red Blood Count 5.61 M/mm3 (4.6-6.2); White Blood Count 8.9 K/mm3 (4.4-11.0)
[2022-11-23 23:42] LABS: D-Dimer Quantitative (DVT/PE) < 0.27 FEU/ug/m (0.27-0.49)
[2022-11-23 23:43] LABS: Anion Gap 8 (5-15); BUN 24 mg/dL (7-18); BUN/Creat Ratio 17.1 RATIO (10-20); Calcium,Total 8.9 mg/dL (8.5-10.1); Chloride 104 mmol/L (98-107); EST Glomerular Filtration Rate 62 mL/min (>60); Est Glom Filt Rate - Afr Amer 75 mL/min (>60); Estimated Creatinine Clearance 83.14 ml/min; Glucose 88 mg/dL (74-106); Potassium 3.6 mmol/L (3.5-5.1); Sodium Level 139 mmol/L (136-145); Troponin-I HS (w/2H Reflex) 4 pg/mL (3.0-78.0)
[2022-11-23 23:54] VITALS: BP 124/84; PULSE 86; RESP 17; O2SAT 94
[2022-11-24 01:19] LABS: Reflex Troponin-HS? (from REC) Y
== END 2022-11-24 00:14 | disposition home or self-care (01) ==
PROVIDERS: Emergency Provider Emergency Medicine; Visit Provider Emergency Medicine
DX: R07.9 Chest pain, unspecified (principal); Z90.49 Acquired absence of other specified parts of digestive tract
CPT/HCPCS: 71045; 80048; 84484; 85025; 85379; 93005; 99283

== ENCOUNTER → 2023-10-05 | Outpatient (CLI) | payer OTHER, SELFPAY ==
[2023-10-05 13:17] LABS: Absolute Lymphocyte Count 2.03 X10^3/uL (0.83-4.51); Basophil# 0.03 X10^3/uL; Basophil% 0.5 % (0-1); Eosinophil# 0.05 X10^3/uL; Eosinophils% 0.9 % (0-5); Hematocrit 47.2 % (40-54); Lymphocyte # 2.03 X10^3/ul (0.83-4.51); Lymphocyte % 36.8 % (19-41); Mean Corpuscular Hgb 30.4 pg (27.0-32.0); Mean Corpuscular Volume 84.3 fL (80-94); Mean Platelet Vol. 10.2 fl (6.2-12.0); Monocyte# 0.41 X10^3/uL; Monocyte% 7.4 % (0-10); NRBC Flagged by Analyzer 0 % (0-5); Neutrophil # 2.99 X10^3/uL (2.7-7.7); Neutrophil % 54.2 % (47-70); Platelet Count 183 K/mm3 (150-450); RBC Distribution Width CV 11.9 % (11.6-14.6); White Blood Count 5.5 K/mm3 (4.4-11.0)
[2023-10-05 13:38] LABS: ALB/GLOB Ratio 1.4 RATIO (0.9-2.4); AST(SGOT) 23 U/L (15-37); Alanine Aminotransfer ALT/SGPT 46 U/L (16-61); Albumin, Serum 4.2 g/dL (3.2-5.0); Alkaline Phosphatase 78 U/L (45-117); Anion Gap 9 (5-15); BUN 20 mg/dL (7-18); BUN/Creat Ratio 15.4 RATIO (10-20); Calcium,Total 8.8 mg/dL (8.5-10.1); Chloride 102 mmol/L (98-107); Cholesterol 243 mg/dL (200); EST Glomerular Filtration Rate 68 mL/min (>60); Est Glom Filt Rate - Afr Amer 82 mL/min (>60); Globulin 2.9 g/dL (2.2-4.2); Glucose 89 mg/dL (74-106); Hemoglobin A1c 4.8 % (3.8-5.6); High Density Lipoprotein 42 mg/dL; Protein, Total 7.1 g/dL (6.4-8.2); Sodium Level 137 mmol/L (136-145); Thyroid Stim Hormone (TSH) 1.41 uIU/mL (0.358-3.74); Triglycerides 153 mg/dL; Very Low Density Lipoprotein 31 mg/dL (5-40)
[2023-10-05 14:45] LABS: Vitamin B12 984 pg/mL (211-911); Vitamin D,25 Hydroxy 50.1 ng/mL
== END | disposition home or self-care (01) ==
PROVIDERS: PCP Nurse Practitioner Family; Visit Provider Nurse Practitioner Family
DX: Z00.00 Encounter for general adult medical examination without abnormal findings (principal); E55.9 Vitamin D deficiency, unspecified
CPT/HCPCS: 36415; 80053; 80061; 82306; 82607; 83036; 84443; 85025

== ENCOUNTER → 2024-02-29 | Outpatient (CLI) | payer OTHER, SELFPAY ==
[2024-02-29 15:28] LABS: Cholesterol 228 mg/dL (200); High Density Lipoprotein 43 mg/dL; Triglycerides 199 mg/dL; Very Low Density Lipoprotein 40 mg/dL (5-40)
== END | disposition home or self-care (01) ==
LOC: LAB 14:04
PROVIDERS: PCP Nurse Practitioner Family; Referring Provider Nurse Practitioner Family; Visit Provider Nurse Practitioner Family
DX: E78.5 Hyperlipidemia, unspecified (principal)
CPT/HCPCS: 36415; 80061

== ENCOUNTER → 2024-03-01 | Outpatient (CLI) | payer OTHER, SELFPAY ==
--- NOTE | 2024-03-01 14:00 | CT_ITS ---
STUDY: CT ABDOMEN AND PELVIS WITH CONTRAST REASON FOR EXAM: Male, 33 years old. rectal pain, rule out abcess RADIATION DOSAGE (If Supplied By Facility): CTDIvol = ( 16.87 ) mGy, DLP = ( 923.97 ) mGycm TECHNIQUE: Transaxial images were obtained from the dome of the diaphragm to the symphysis pubis without oral contrast. Oral and amp; IV Readi-CAT and amp; 100mL Isovue-370 was administered. Sagittal and coronal images were reconstructed. Individualized dose optimization techniques were used for this CT. COMPARISON: February 24, 2022 FINDINGS: The visualized lung bases are unremarkable. The visualized portions of the heart are within normal limits. Normal liver. Normal gallbladder and extrahepatic biliary system. Normal spleen. Normal pancreas. Normal bilateral adrenal glands. Normal right kidney. Normal left kidney. Normal visualized stomach. Normal small intestine. Normal colon. The appendix is nonvisualized. Normal abdominal aorta. Normal inferior vena cava. Normal retroperitoneum. Normal urinary bladder. Normal abdominal wall. Spondylolysis of L5. CT/Abdomen/Pelvis WITH Contrast IMPRESSION: No acute pathology of the abdomen and pelvis. Electronically Signed: Prasanna Bautista DO at 12:19 [facility] Reading Location ID and State: [facility] / [place] Tel [phone], Service support ,
== END | disposition home or self-care (01) ==
PROVIDERS: PCP Nurse Practitioner Family; Referring Provider Student in an Organized Health Care Education/Training Program; Visit Provider Student in an Organized Health Care Education/Training Program
DX: K62.89 Other specified diseases of anus and rectum (principal)
CPT/HCPCS: 74177; Q9967

== ENCOUNTER 2024-04-18 11:19 | Day surgery (SDC) | payer OTHER, SELFPAY ==
[2024-04-18] VITALS (8 sets, daily range): BP systolic 92–147; BP diastolic 56–69; PULSE 75–91; RESP 16–18; TEMP 36.9; O2SAT 95–99; BMI 29.6
--- NOTE | 2024-04-18 12:08 | PCM.HP.STD ---
HPI - General General Date of Admission: 04/18/24 Date of Service: 04/18/24 Chief Complaint: Rectal pain HPI Narrative ELOY BOSS, is a 33 M who presents for colonoscopy to evaluate his rectal pain. Pt has had Rectal pain starting 01.30.24 along with tailbone pain. Went to urgent care and was put on doxycycline for possible gluteal abscess. His pain is intermittent and dull. It is every day but does not last the whole day. He has never had pain like this before. It is worse with sitting. He has a hx of hemorrhoids but says this feels different. The pain feels internal. He does have an enlarged prostate and wonders if this could be a cause. He just finished the antibiotic on 02.13.24 and is feeling a little better now. . He has as not been able to see anything visible on his skin. It is not painful with bowel movements. No fevers, blood in his stool, or abdominal pain. He has never had a colonoscopy. Abdomen/Pelvis WITH Contrast Today K62.89 - Other specified diseases of anus and rectum [facility] Medical History Alcohol use High cholesterol Restless legs Back pain History of hiatal hernia Gastric reflux Non-smoker CPAP (continuous positive airway pressure) dependence Pre-syncope BPH (benign prostatic hyperplasia) Chronic abdominal pain TMJ syndrome Encounter for preventative adult health care examination History of deviated nasal septum Home Medications ?Medication ?Instructions ?Recorded ?Last Taken ?Type multivitamin with minerals 1 tab PO DAILY 03/11/19 04/14/24 History omega 6-bsk-znn-fish oil 60 mg-90 1 cap PO DAILY 05/08/19 04/14/24 History mg-500 mg capsule (Fish Oil) cyclobenzaprine 10 mg tablet 5 - 10 mg (0.5 - 1 x 10 mg) PO TID 06/24/20 Unknown Rx PRN muscle spasm #30 tabs ibuprofen 800 mg tablet 800 mg PO Q8H PRN pain #90 tabs 12/16/20 Unknown Rx phenylephrine 0.25 %-pramoxine 1 1 applic MD BID-QID PRN rectal 02/03/24 Unknown Rx %-glycerin-wh.petrolatum rectal discomfort #26 grams cream (Preparation H Maximum Strength) Lactobacillus acidophilus 250 500 mmu cells PO DAILY 04/16/24 Unknown History million cell capsule (Probiotic Acidophilus) ascorbic acid (vitamin C) 1,000 mg 1 g PO DAILY 04/16/24 Unknown History tablet (C-1000) cholecalciferol (vitamin D3) 125 125 mcg PO DAILY 04/16/24 Unknown History mcg (5,000 unit) tablet (Vitamin D3) famotidine 20 mg tablet (Acid 20 mg PO BID 04/16/24 04/18/24 09:00 History Controller) psyllium husk 3.4 gram/5.4 gram 1 tbsp PO DAILY 04/16/24 04/13/24 History oral powder (Metamucil) Allergy/AdvReac Type Severity Reaction Status Date / Time Penicillins Allergy Hives Verified 04/18/24 11:47 Family History Father Narcolepsy and cataplexy Asthma Grandfather Alcoholism Myocardial infarction Grandmother Myocardial infarction osteporosis Thyroid disorder Mother High cholesterol Surgical History History of appendectomy Social History Smoking Status: Never smoker alcohol intake: current alcohol intake frequency: a few times a week substance use type: does not use what type of physical activity do you participate in: running and weight training frequency: 3-4 times per week ROS Constitutional Constitutional: Denies fatigue, fever(s), poor appetite, weight gain or weight loss Gastrointestinal Gastrointestinal: Denies belching, bloating, change in bowel habits, change in stool character, chewing difficulty, coffee ground emesis, constipation, cramping, diarrhea, dyspepsia, dysphagia, early satiety, excessive flatus, fecal incontinence, heartburn, hematemesis, hematochezia, hemorrhoids, loose stools, melena, nausea, odynophagia, rectal bleeding, tenesmus, vomiting or weight changes Vital Signs Vital Signs Vital Signs: 04/18/24 11:49 04/18/24 11:49 Temperature 98.4 F Temperature Source Temporal Pulse Rate 91 Respiratory Rate 18 Respiratory Pattern Normal Blood Pressure 147/69 H Blood Pressure Mean 95 Blood Pressure Source Monitor Blood Pressure Position Sitting Blood Pressure Location Left Arm Pulse Ox 98 Oxygen Delivery Method Room Air Weight Weight: 218 lb 4.122 oz Body Mass Index (BMI) 29.6 Physical Exam Const alert, oriented x3, no apparent distress and healthy appearing General Appearance: cooperative GI normal to inspection, nondistended, normoactive bowel sounds, soft to palpation, non-tender and non-distended Percussion: normal to percussion Rectal Exam: deferred Assessment & Plan Assessment/Plan (1) Rectal pain: PLAN: Assessment and Plan Assessment and Plan (1) Rectal pain: Status: Acute Plan: This is a 33 yo male pt here today for rectal pain. Pt was seen at urgent care and given oral antibiotic. Since then his pain has decreased but still persists. On examination there is no visible skin abnormality. He has normal rectal done and was not tender during rectal examination. No internal hemorrhoids or masses appreciated on exam. I will order a CT abdomen/pelvis to rule out a rectal abscess. He will be scheduled for colonposcy and if pain resolves he may cancel. Also on my differential is proctalgia fugax, prostate pain or hemorrhoids. -CT abd/pelvis -Colonoscopy Orders: Orders Abdomen/Pelvis WITH Contrast Today K62.89 - Other specified diseases of anus and rectum
--- NOTE | 2024-04-18 12:24 | PRE.ANES_ITS ---
ASA Classification* ASA Classification ASA Classification: 2 Assessment & Plan Anesthesia* Anesthesia Assessment Anesthesia Assessment: Discussed sedation and/or anesthesia options, risks, benefits, and alternatives with patient/parents/legal guardian/POA. Questions invited. The patient/parents/legal guardian/POA seems to understand and agrees to proceed with anesthesia plan. Reviewed the physical assessment, medical history, allergy history and patient home medications list prior to surgery/procedure/anesthetic and documented any changes. Performed airway and anesthesia risk assessments. Anesthesia Type Anesthesia Type: MAC History Source History Obtained from:: Patient and Chart Anesthesia Focused Assessment* Temperature: 98.4 F Pulse Rate: 91 Blood Pressure: 147/69 Respiratory Rate: 18 Pulse Ox: 98 Oxygen Delivery Method: Room Air Airway Assessment Mouth opens: >3 cm Mallampati Score: II Teeth Condition: Intact Neck Range of motion (ROM): Full ROM Focused Labs Anesthesia Preop lab: CBC WBC 5.5 K/mm3 (4.4-11.0) 10/05/23 12:11 RBC 5.60 M/mm3 (4.6-6.2) 10/05/23 12:11 Hgb 17.0 g/dL (13.0-16.5) H 10/05/23 12:11 Hct 47.2 % (40-54) 10/05/23 12:11 Plt Count 183 K/mm3 (150-450) 10/05/23 12:11 CHEMISTRY Potassium 4.0 mmol/L (3.5-5.1) 10/05/23 12:11 Sodium 137 mmol/L (136-145) 10/05/23 12:11 BUN 20 mg/dL (7-18) H 10/05/23 12:11 Creatinine 1.30 mg/dL (0.70-1.30) 10/05/23 12:11 Glucose 89 mg/dL (74-106) 10/05/23 12:11 TSH 1.41 uIU/mL (0.358-3.74) 10/05/23 12:11 COAG Pre-Assessment Diagnosis/Proposed Procedure Planned Operative Procedure(s): CSCOPE Anesthesia History 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 When Was Last Pacemaker Check QUESTION #4 FULL TEXT: You/Your Family Experience fever (hyperthermia) with Anesthesia Last Oral Intake Last Oral intake: Last Oral Intake NPO since 09:00 04/18/24 11:49 Meds taken in AM with sips of Yes 04/18/24 11:49 water? Meds patient instructed to pepcid 04/18/24 11:49 take am of surgery PONV PONV - wire products inspector: PONV - wire products inspector Female No 04/16/24 12:21 HX of Motion Sickness No 04/16/24 12:21 HX of N/V After Surgery No 04/16/24 12:21 Non-Smoker Yes 04/16/24 12:21 Duration of Surgery greater No 04/16/24 12:21 than 60 minutes Number of Risk Factors 1 04/16/24 12:21 PONV Score Low Risk 04/16/24 12:21 Height & Weight Height & Weight: Anesthesia: Height & Weight Height 6 ft 04/18/24 11:49 Weight: 99 kg 04/18/24 11:49 Body Mass Index (BMI) 29.6 04/18/24 11:49 Respiratory Assessment Respiratory Assessment - wire products inspector: Respiratory Tract Infection Hx - wire products inspector Hx Respiratory Tract Infection No 04/16/24 12:21 STOP Sleep Apnea STOP Sleep Apnea - wire products inspector: STOP Sleep Apnea - wire products inspector Hx Hypertension No 04/16/24 12:21 Hx Sleep Apnea Yes 04/16/24 12:21 CPAP Yes 04/16/24 12:21 BIPAP No 04/16/24 12:21 Do you snore loudly (louder than talking or can be heard Do you often feel tired/ fatigued/ sleepy during daytime? Has anyone observed you stop breathing during sleep? STOP Results Positive 04/16/24 12:21 QUESTION #5 FULL TEXT : Do you snore loudly (louder than talking or can be heard through closed doors)? 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 Specify any problems Hx of Preganancy in last 3 N/A 04/16/24 12:21 Months Nurse Filling Out Transfusion [email or web address] 04/16/24 12:21 & Questions: Date: 04/16/24 04/16/24 12:21 Time: 12:22 04/16/24 12:21 Patient unable to answer at this time (ie. confused, unrespo /Reproduction History /Reproductive History - wire products inspector: /Reproductive Hx- wire products inspector Hx Now No 04/16/24 12:21 Gestational Age (in weeks): EDC: Hx Hx Para Hx Section SAB No 04/16/24 12:21 PFSH Medical History Alcohol use High cholesterol Restless legs Back pain History of hiatal hernia Gastric reflux Non-smoker CPAP (continuous positive airway pressure) dependence Pre-syncope BPH (benign prostatic hyperplasia) Chronic abdominal pain TMJ syndrome Encounter for preventative adult health care examination History of deviated nasal septum Home Medications ?Medication ?Instructions ?Recorded ?Last Taken ?Type multivitamin with minerals 1 tab PO DAILY 03/11/19 04/14/24 History omega 2-kpo-fxl-fish oil 60 mg-90 1 cap PO DAILY 05/08/19 04/14/24 History mg-500 mg capsule (Fish Oil) cyclobenzaprine 10 mg tablet 5 - 10 mg (0.5 - 1 x 10 mg) PO TID 06/24/20 Unknown Rx PRN muscle spasm #30 tabs ibuprofen 800 mg tablet 800 mg PO Q8H PRN pain #90 tabs 12/16/20 Unknown Rx phenylephrine 0.25 %-pramoxine 1 1 applic ME BID-QID PRN rectal 02/03/24 Unknown Rx %-glycerin-wh.petrolatum rectal discomfort #26 grams cream (Preparation H Maximum Strength) Lactobacillus acidophilus 250 500 mmu cells PO DAILY 04/16/24 Unknown History million cell capsule (Probiotic Acidophilus) ascorbic acid (vitamin C) 1,000 mg 1 g PO DAILY 04/16/24 Unknown History tablet (C-1000) cholecalciferol (vitamin D3) 125 125 mcg PO DAILY 04/16/24 Unknown History mcg (5,000 unit) tablet (Vitamin D3) famotidine 20 mg tablet (Acid 20 mg PO BID 04/16/24 04/18/24 09:00 History Controller) psyllium husk 3.4 gram/5.4 gram 1 tbsp PO DAILY 04/16/24 04/13/24 History oral powder (Metamucil) Allergy/AdvReac Type Severity Reaction Status Date / Time Penicillins Allergy Hives Verified 04/18/24 11:47 Family History Father Narcolepsy and cataplexy Asthma Grandfather Alcoholism Myocardial infarction Grandmother Myocardial infarction osteporosis Thyroid disorder Mother High cholesterol Surgical History History of appendectomy Social History Smoking Status: Never smoker alcohol intake: current alcohol intake frequency: a few times a week substance use type: does not use what type of physical activity do you participate in: running and weight training frequency: 3-4 times per week Review of Systems (Anesthesia) ROS Narrative System reviewed and no additional complaints, except as documented.
--- NOTE | 2024-04-18 13:13 | OP.CCLET_ITS ---
04/18/2024 Kevin Tate [facility], Hydraulic Tester-c Re : Colonoscopy procedure for Daniel Valentino Dear Tate This procedure was performed on Thursday, April 18, 2024. My impressions and recommendations are as follows: Impressions : - Anal fissure. - Non-bleeding internal hemorrhoids. - The examination was otherwise normal on direct and retroflexion views. - No specimens collected. Recommendations : - Discharge patient to home. - Resume previous diet. - Continue present medications. - Repeat colonoscopy in 10 years for screening purposes. My findings are described in the full procedure note, which is enclosed. If I can be of further assistance, please feel free to contact me at . Sincerely, Stefano Reyes, 04/18/2024 1:13:25 PM This report has been signed electronically.
--- NOTE | 2024-04-18 13:13 | OP.COLON_ITS ---
Patient Name: Daniel Valentino Procedure Date: 04/18/2024 12:45 PM Date of : 1990 Age: 33 Procedure: Colonoscopy Indications: Pelvic pain, Lower abdominal pain Providers: Stefano Reyes DO Medicines: Monitored Anesthesia Care Patient Profile: This is a 33 year old male. Refer to note in patient chart for documentation of history and physical. Last Colonoscopy: none. The patient's first colonoscopy is today. Complications: No immediate complications. Procedure: Pre-Anesthesia Assessment: - Prior to the procedure, a History and Physical was performed, and patient medications and allergies were reviewed. The patient is competent. The risks and benefits of the procedure and the sedation options and risks were discussed with the patient. All questions were answered and informed consent was obtained. Patient identification and proposed procedure were verified by the physician in the pre-procedure area. Mental Status Examination: alert and oriented. Airway Examination: normal oropharyngeal airway and neck mobility. Respiratory Examination: clear to auscultation. CV Examination: normal. Prophylactic Antibiotics: The patient does not require prophylactic antibiotics. Prior Anticoagulants: The patient has taken no anticoagulant or antiplatelet agents except for NSAID medication. ASA Grade Assessment: II - A patient with mild systemic disease. After reviewing the risks and benefits, the patient was deemed in satisfactory condition to undergo the procedure. The anesthesia plan was to use monitored anesthesia care (MAC). Immediately prior to administration of medications, the patient was re-assessed for adequacy to receive sedatives. The heart rate, respiratory rate, oxygen saturations, blood pressure, adequacy of pulmonary ventilation, and response to care were monitored throughout the procedure. The physical status of the patient was re-assessed after the procedure. After I obtained informed consent, the scope was passed under direct vision. Throughout the procedure, the patient's blood pressure, pulse, and oxygen saturations were monitored continuously. The Colonoscope was introduced through the anus and advanced to the terminal ileum. The colonoscopy was performed without difficulty. The patient tolerated the procedure well. The quality of the bowel preparation was adequate. The ileocecal valve, appendiceal orifice, and rectum were photographed. Scope In: 12:52:58 PM Scope Withdrawal Time 0 hours 8 minutes 38 seconds Scope Out: 1:06:30 PM Total Procedure Duration Time 0 hours 13 minutes 32 seconds Findings: The perianal and digital rectal examinations were normal. A 5 mm anal fissure was found in the anal canal. Non-bleeding internal hemorrhoids were found during retroflexion. The hemorrhoids were Grade II (internal hemorrhoids that prolapse but reduce spontaneously). The exam was otherwise without abnormality on direct and retroflexion views. Impression: - Anal fissure. - Non-bleeding internal hemorrhoids. - The examination was otherwise normal on direct and retroflexion views. - No specimens collected. Recommendation: - Discharge patient to home. - Resume previous diet. - Continue present medications. - Repeat colonoscopy in 10 years for screening purposes. Procedure Code(s): --- Professional --- 95561, Colonoscopy, flexible; diagnostic, including collection of specimen(s) by brushing or washing, when performed (separate procedure) CPT copyright 2021 [employer]. All rights reserved. The codes documented in this report are preliminary and upon wood experimental mechanic review may be revised to meet current compliance requirements. Stefano Reyes DO 04/18/2024 1:13:25 PM This report has been signed electronically. Number of Addenda: 0 Note Initiated On: 04/18/2024 12:45 PM
--- NOTE | 2024-04-18 13:14 | PCM.POST.ANE ---
Anesthesia: Postop Eval I Current Vital Signs Temperature: 98.5 F Pulse Rate: 81 Blood Pressure: 97/59 Respiratory Rate: 16 Pulse Ox: 97 Oxygen Delivery Method: Room Air Assessment Airway patent: Yes Spontaneous unlabored respirations: Yes Mental status: Asleep nausea: No Vomiting: No Anesthesia Complication: No Fluid Hydration Crystalloid volume administer (ml): 60 Total IV fluid infused: 60 Progress Note Anesthesia document: Postop Eval 1 completed: Yes
--- NOTE | 2024-04-18 13:38 | PCM.POSTANE2 ---
Anesthesia Postop Eval I Sum Postop Eval Completion status Anesthesia document: Postop Eval 1 completed: Yes Anesthesia Postop Eval I Summary Anesthesia Postop Eval I Summary: Anesthesia Postop Eval I: Assessment Summary Airway patent Yes 04/18/24 13:16 [email or web address] Spontaneous unlabored Yes 04/18/24 13:16 [email or web address] respirations Mental status Asleep 04/18/24 13:16 [email or web address] nausea No 04/18/24 13:16 [email or web address] Vomiting No 04/18/24 13:16 [email or web address] Anesthesia Postop Eval I: Fluid Summary Crystalloid volume administer 60 04/18/24 13:16 [email or web address] (ml) Colloids volume administered ( ml) Blood Product volume administered (ml) Total IV fluid infused 60 04/18/24 13:16 [email or web address] Anesthesia Postop Eval I: Summary Notes Anesthesia Complication No 04/18/24 13:16 [email or web address] Anesthesia Complication Comment: Post-operative progress note Anesthesia: Postop Eval II Evaluation Mental status: Awake Pain Level: 0 nausea: No Vomiting: No Complications Anesthesia Complication: No
== END 2024-04-18 13:57 | disposition home or self-care (01) ==
LOC: EN 11:21 → AC 11:21
PROVIDERS: PCP Nurse Practitioner Family; Referring Provider Nurse Practitioner Family; Visit Provider Internal Medicine Gastroenterology
PROC: 0DJD8ZZ Inspection of Lower Intestinal Tract, Via Natural or Artificial Opening Endoscopic (ICD-10-PCS; CPT 45378; principal; 2024-04-18 12:10)
DX: K62.89 Other specified diseases of anus and rectum (principal); K64.1 Second degree hemorrhoids; K60.2 Anal fissure, unspecified; E78.00 Pure hypercholesterolemia, unspecified; K21.9 Gastro-esophageal reflux disease without esophagitis; Z79.899 Other long term (current) drug therapy; Z90.49 Acquired absence of other specified parts of digestive tract
CPT/HCPCS: 45378; A4216; J2405

== ENCOUNTER → 2024-11-16 | Outpatient (CLI) | payer OTHER, SELFPAY ==
[2024-11-16 09:00] LABS: Color, Urine Yellow (Yellow); Glucose, Dipstick Normal (Normal); Ketone-Dipstick Negative (Negative); Leukocyte Esterase-Dipstick Negative /ul (Negative); Nitrite-Dipstick Negative (Negative); Occult Blood-Urine Negative /ul (Negative); Protein-Dipstick Negative (Negative); Specific Gravity, Urine 1.015 (1.002-1.030); Urine Bilirubin Dipstick Negative (Negative)
[2024-11-16 09:03] LABS: Hematocrit 43.3 % (40-54); Hemoglobin 15.9 g/dL (13.0-16.5); Immature Granulocytes Count 0.010 X10^3/uL (0.0-0.0); Mean Corp Hgb Conc 36.7 g/dL (32-36); Mean Corpuscular Volume 84.9 fL (80-94); Mean Platelet Vol. 10.0 fl (6.2-12.0); NRBC Flagged by Analyzer 0 % (0-5); Platelet Count 167 K/mm3 (150-450); RBC Distribution Width CV 12.0 % (11.6-14.6); RBC Distribution Width SD 37.0 fl (35.1-43.9); Red Blood Count 5.10 M/mm3 (4.6-6.2); White Blood Count 4.8 K/mm3 (4.4-11.0)
[2024-11-16 10:22] LABS: AST(SGOT) 32 U/L (<=37); Alanine Aminotransfer ALT/SGPT 40 U/L (<=46); Albumin, Serum 4.4 g/dL (3.5-5.0); Alkaline Phosphatase 68 U/L (40-129); Anion Gap 10 (5-15); BUN 20 mg/dL (4-19); BUN/Creat Ratio 18.0 RATIO (10-20); Calcium,Total 8.8 mg/dL (7.6-11.0); Carbon Dioxide 24.5 mmol/L (21.0-32.0); Chloride 105 mmol/L (98-108); Cholesterol 228 mg/dL (<=200); Globulin 1.9 g/dL (2.2-4.2); Glucose 99 mg/dL (70-99); Low Density Lipoprotein Calc. 167 mg/dL; Potassium 4.5 mmol/L (3.3-5.1); Triglycerides 88 mg/dL; Very Low Density Lipoprotein 18 mg/dL (5-40); cholesterol:hdl ratio screen 5.30
[2024-11-16 10:26] LABS: Vitamin B12 869 pg/mL (180-914)
[2024-11-19 13:07] LABS: Vitamin D 1,25-Dihydroxy 74.5 pg/mL (24.8-81.5)
== END | disposition home or self-care (01) ==
LOC: LAB 08:17
PROVIDERS: PCP Nurse Practitioner Family; Referring Provider Nurse Practitioner Family; Visit Provider Nurse Practitioner Family
DX: Z00.00 Encounter for general adult medical examination without abnormal findings (principal)
CPT/HCPCS: 36415; 80053; 80061; 81002; 82607; 82652; 84443; 85025

== ENCOUNTER 2024-12-26 06:50 | Day surgery (SDC) | payer OTHER, SELFPAY ==
--- NOTE | 2024-12-20 14:16 | PAT.ANESEVAL ---
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 When Was Last Pacemaker Check QUESTION #4 FULL TEXT: You/Your Family Experience fever (hyperthermia) with Anesthesia Last Oral Intake Last Oral intake: Last Oral Intake NPO since Meds taken in AM with sips of water? Meds patient instructed to take am of surgery PONV PONV - marine chronometer assembler: PONV - marine chronometer assembler Female No 12/20/24 12:18 HX of Motion Sickness No 12/20/24 12:18 HX of N/V After Surgery No 12/20/24 12:18 Non-Smoker Yes 12/20/24 12:18 Duration of Surgery greater No 12/20/24 12:18 than 60 minutes Number of Risk Factors 1 12/20/24 12:18 PONV Score Low Risk 12/20/24 12:18 Height & Weight Height & Weight: Anesthesia: Height & Weight Height 6 ft 11/14/24 14:41 Respiratory Assessment Respiratory Assessment - marine chronometer assembler: Respiratory Tract Infection Hx - marine chronometer assembler Hx Respiratory Tract Infection No 12/20/24 12:18 STOP Sleep Apnea STOP Sleep Apnea - marine chronometer assembler: STOP Sleep Apnea - marine chronometer assembler Hx Hypertension No 12/20/24 12:18 Hx Sleep Apnea Yes 12/20/24 12:18 CPAP Yes: non compliant 12/20/24 12:18 BIPAP No 12/20/24 12:18 Do you snore loudly (louder than talking or can be heard Do you often feel tired/ fatigued/ sleepy during daytime? Has anyone observed you stop breathing during sleep? STOP Results Positive 12/20/24 12:18 QUESTION #5 FULL TEXT : Do you snore loudly (louder than talking or can be heard through closed doors)? 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: Tobacco Use History - marine chronometer assembler Tobacco Use Smoking Status Never smoker 12/20/24 12:18 Hx Tobacco Use No 12/20/24 12:18 Years Smoking Packs Smoked per Day Smoking Cessation Date was within the last 15 years Hx Smoking Cessation Date Hx Smoking Cessation Counseling Hematologic Medial History Hematologic Hx - marine chronometer assembler: Hematologic Medical Hx - clinical documentation specialist Hx of Blood Transfusion No 12/20/24 12:18 Hx of Transfusion in last 3 No 12/20/24 12:18 Months Date of Last Transfusion (if within last 3 months) Ever experience any problems No 12/20/24 12:18 with transfusion(s)? Specify any problems Hx of Preganancy in last 3 N/A 12/20/24 12:18 Months Nurse Filling Out Transfusion [email or web address] 12/20/24 12:18 & Questions: Date: 12/20/24 12/20/24 12:18 Time: 12:19 12/20/24 12:18 Patient unable to answer at this time (ie. confused, unrespo /Reproduction History /Reproductive History - marine chronometer assembler: /Reproductive Hx- marine chronometer assembler Hx Now No 12/20/24 12:18 Gestational Age (in weeks): EDC: Hx Hx Para Hx Section SAB No 12/20/24 12:18 COUNTS INCLUDE 234 BEDS AT THE [facility] Medical History (Updated 12/20/24 @ 12:18 by Katherine Rios) Sleep apnea Alcohol use High cholesterol Restless legs Back pain History of hiatal hernia Gastric reflux Non-smoker CPAP (continuous positive airway pressure) dependence Pre-syncope BPH (benign prostatic hyperplasia) Chronic abdominal pain TMJ syndrome Encounter for preventative adult health care examination History of deviated nasal septum Home Medications ?Medication ?Instructions ?Recorded ?Last Taken ?Type multivitamin with minerals 1 tab PO DAILY 03/11/19 04/14/24 History omega 5-fgm-yvi-fish oil 60 mg-90 1 cap PO DAILY 05/08/19 04/14/24 History mg-500 mg capsule (Fish Oil) cyclobenzaprine 10 mg tablet 5 - 10 mg (0.5 - 1 x 10 mg) PO TID 06/24/20 Unknown Rx PRN muscle spasm #30 tabs ibuprofen 800 mg tablet 800 mg PO Q8H PRN pain #90 tabs 12/16/20 Unknown Rx Lactobacillus acidophilus 250 500 mmu cells PO DAILY 04/16/24 Unknown History million cell capsule (Probiotic Acidophilus) cholecalciferol (vitamin D3) 125 125 mcg PO DAILY 04/16/24 Unknown History mcg (5,000 unit) tablet (Vitamin D3) psyllium husk 3.4 gram/5.4 gram 1 tbsp PO DAILY 04/16/24 04/13/24 History oral powder (Metamucil) Diltiazem 2% / Lidocaine 5% #1 ea 08/21/24 Unknown Rx ointment (compound) omeprazole 40 mg capsule,delayed 40 mg PO QDAY 11/14/24 Unknown History release Allergy/AdvReac Type Severity Reaction Status Date / Time Penicillins Allergy Hives Verified 12/20/24 12:14 Family History Father Narcolepsy and cataplexy Asthma Grandfather Alcoholism Myocardial infarction Grandmother Myocardial infarction osteporosis Thyroid disorder Mother High cholesterol Surgical History History of appendectomy Social History Smoking Status: Never smoker alcohol intake: current alcohol intake frequency: a few times a week substance use type: does not use what type of physical activity do you participate in: running and weight training frequency: 3-4 times per week Audit: Pertinent Findings Pertinent Findings EKG Perinent findings: November 23, 2022. Sinus tachycardia at 115 bpm, otherwise normal EKG. Recommendation Anesthesia Recommendation Anesthesia recommendation: OPTIMIZED for anesthesia (Check heart rate on day of surgery.)
[2024-12-26] VITALS (9 sets, daily range): BP systolic 91–109; BP diastolic 50–79; PULSE 66–78; RESP 16–18; TEMP 36.3–36.8; O2SAT 96–99; BMI 29.6
--- NOTE | 2024-12-26 07:04 | H&P.OPEN ---
HPI - General General Date of Service: 12/26/24 HPI Narrative ELOY BOSS, is a 34 M who presents for an EGD due to reflux. Patient is currently been on omeprazole 40 mg p.o. daily states that symptoms are controlled except if he has tomato sauces then he may need additional Pepcid. Office visit 11/14/2024 HPI HPI: 34-year-old male presents due to reflux. Patient states he has had reflux for years initially just took Tums and then take did take omeprazole for period of time and then went to the Pepcid. Patient states more recently had an increase burning and abdominal discomfort nausea on the Pepcid twice daily was changed to omeprazole a few weeks ago by PCP. Patient is planning on coming off the Pepcid as he was taking along with the omeprazole initially. Patient's never had previous EGD. Patient states he was told he had a hiatal hernia at the time of his laparoscopic appendectomy in 2019. Patient states that currently the omeprazole is helping with the burning up the esophagus. [facility] Medical History Sleep apnea Alcohol use High cholesterol Restless legs Back pain History of hiatal hernia Gastric reflux Non-smoker CPAP (continuous positive airway pressure) dependence Pre-syncope BPH (benign prostatic hyperplasia) Chronic abdominal pain TMJ syndrome Encounter for preventative adult health care examination History of deviated nasal septum Home Medications ?Medication ?Instructions ?Recorded ?Last Taken ?Type multivitamin with minerals 1 tab PO DAILY 03/11/19 12/25/24 History omega 1-jtr-mhz-fish oil 60 mg-90 1 cap PO DAILY 05/08/19 12/22/24 History mg-500 mg capsule (Fish Oil) cyclobenzaprine 10 mg tablet 5 - 10 mg (0.5 - 1 x 10 mg) PO TID 06/24/20 Unknown Rx PRN muscle spasm #30 tabs ibuprofen 800 mg tablet 800 mg PO Q8H PRN pain #90 tabs 12/16/20 12/24/24 Rx Lactobacillus acidophilus 250 500 mmu cells PO DAILY 04/16/24 12/25/24 History million cell capsule (Probiotic Acidophilus) cholecalciferol (vitamin D3) 125 125 mcg PO DAILY 04/16/24 12/25/24 History mcg (5,000 unit) tablet (Vitamin D3) psyllium husk 3.4 gram/5.4 gram 1 tbsp PO DAILY 04/16/24 12/25/24 History oral powder (Metamucil) Diltiazem 2% / Lidocaine 5% #1 ea 08/21/24 Unknown Rx ointment (compound) omeprazole 40 mg capsule,delayed 40 mg PO QDAY 11/14/24 12/26/24 History release ashwagandha extract 500 mg capsule 1,000 mg PO DAILY 12/26/24 12/25/24 History Allergy/AdvReac Type Severity Reaction Status Date / Time Penicillins Allergy Hives Verified 12/26/24 07:15 Family History Father Narcolepsy and cataplexy Asthma Grandfather Alcoholism Myocardial infarction Grandmother Myocardial infarction osteporosis Thyroid disorder Mother High cholesterol Surgical History History of appendectomy Social History Smoking Status: Never smoker alcohol intake: current alcohol intake frequency: a few times a week substance use type: does not use what type of physical activity do you participate in: running and weight training frequency: 3-4 times per week Past Medical/Surgical History Planned Operation Planned Operative Procedure(s): EGD Previous Hospitalizations/Surgeries HX Hospitalizations: No Any Problems With Anesthesia: No You/Your Family Experience Fever (Hyperthermia) With Anes: No Cholinesterase deficiency: No Cardiovascular Hx Chest Pain within Last 2 months: No Hx of Irregular Heartbeat and/or Afib: No Hx Heart Attack: No Hx Hypertension: No Hx Cardiac Surgery/Stents/Etc.: No Hx Pain in Legs when Walking/Leg Cramps: No Respiratory Hx Chronic Obstructive Pulmonary Disease (COPD): No Hx Emphysema: No Hx Sleep Apnea: Yes CPAP: Yes (non compliant) BIPAP: No Hx Respiratory Tract Infection/Cold (presently): No Result (for STOP score): Positive Hx Smoking: No Smoking Status: Never smoker Gastrointestinal Hx Gastrointestinal Bleed: No Hx Ulcer: No Hx Unplanned Weight Loss of 20#: No Neurological Hx Seizures: No Hx Multiple Sclerosis: No Hx Parkinson's Disease: No Does patient have nerve stimulator: No Blood Disorder Hx Hepatitis: No Hx Cirrhosis: No Hx Anemia: No Hx Blood Disorders: No Reproduction : No Genitourinary Hx Renal Disease: No Hx Dialysis: No Musculoskeletal Hx Arthritis: No Hx Rheumatoid Arthritis: No Endocrine Hx Diabetes: No Thyroid Disease: No Psycho/Social Hx Substance Use: No Hx Alcohol Use: Yes (1 beer/week) Hx Anxiety: No Hx Depression: No Hx Dementia: No Miscellaneous Hx Cancer: No Recent Exposure to Contagious Disease: No Allergies Penicillins Allergy (Verified 12/26/24 07:15) Hives Discharge Is Pt Admitted From a Half-Way, or a Assisted: No After D/C, Where Do you Plan to Go: Return Home Physical Exam Const alert, oriented x3 and no apparent distress HEENT normocephalic and head/scalp atraumatic Resp normal respiratory effort Cardio regular rate GI soft to palpation and non-tender; Negative for non-distended Palpation: Negative for guarding Extremity no clubbing, cyanosis or edema Skin no rashes or lesions noted Neuro CN's II-XII intact bilaterally Psych mental status grossly normal Assessment & Plan Assessment/Plan (1) GERD (gastroesophageal reflux disease): Surgery Risks - Colonoscopy I discussed with the patient the risks of the procedure: Yes Risks Include but are not Limited To: Plan for an EGD only Risks include but are not limited to: Bleeding, perforation requiring further surgery
[2024-12-26] MEDS: Lactated Ringers 1,000 ML 15 ML IV (07:26)
--- NOTE | 2024-12-26 07:41 | PRE.ANES_ITS ---
ASA Classification* ASA Classification ASA Classification: 2 Assessment & Plan Anesthesia* Anesthesia Assessment Anesthesia Assessment: Discussed sedation and/or anesthesia options, risks, benefits, and alternatives with patient/parents/legal guardian/POA. Questions invited. The patient/parents/legal guardian/POA seems to understand and agrees to proceed with anesthesia plan. Reviewed the physical assessment, medical history, allergy history and patient home medications list prior to surgery/procedure/anesthetic and documented any changes. Performed airway and anesthesia risk assessments. Anesthesia Type Anesthesia Type: MAC History Source History Obtained from:: Patient and Chart Anesthesia Focused Assessment* Temperature: 97.3 F Pulse Rate: 76 Blood Pressure: 109/79 Respiratory Rate: 18 Pulse Ox: 97 Oxygen Delivery Method: Room Air Airway Assessment Mouth opens: >3 cm Mallampati Score: II Teeth Condition: Intact Neck Range of motion (ROM): Full ROM Labs Anesthesia Preop lab: CBC WBC, (4.4-11.0) 4.8 K/mm3 11/16/24, 08: RBC, (4.6-6.2) 5.10 M/mm3 11/16/24, 08:25 Hgb, (13.0-16.5) 15.9 g/dL 11/16/24, 08:25 Hct, (40-54) 43.3 % 11/16/24, 08:25 Plt Count, (150-450) 167 K/mm3 11/16/24, 08:25 CHEMISTRY Potassium, (3.3-5.1) 4.5 mmol/L 11/16/24, : Sodium, (133-145) 139 mmol/L 11/16/24, 08:25 BUN, (4-19) 20 mg/dL H 11/16/24, 08:25 Creatinine, (0.70-1.20) 1.11 mg/dL 11/16/24, :25 Glucose, (70-99) 99 mg/dL 11/16/24, 08:25 TSH, (0.300-4.200) 1.180 uIU/mL 11/16/24, 08:25 COAG Pre-Assessment Diagnosis/Proposed Procedure Planned Operative Procedure(s): EGD Anesthesia History Anesthesia History - vegetable cutter: Anesthesia History - vegetable cutter Hx Hospitalization No 10/08/25 07:06 Any Problems With Anesthesia No 12/26/24 07:06 Cholinesterase deficiency No 12/26/24 07:06 You/Your Family Experience No 12/26/24 07:06 fever (hyperthermia) with Relationship Recent Exposure to Contagious No 12/26/24 07:17 Disease Does patient have nerve No 12/26/24 07:06 stimulator Patient instructed to have device shut off --Does patient have Pacemaker No 12/26/24 07:17 or ICD? When Was Last Pacemaker Check QUESTION #4 FULL TEXT: You/Your Family Experience fever (hyperthermia) with Anesthesia Last Oral Intake Last Oral intake: Last Oral Intake NPO since 21:00 12/26/24 07:17 Meds taken in AM with sips of Yes 12/26/24 07:17 water? Meds patient instructed to take am of surgery PONV PONV - vegetable cutter: PONV - vegetable cutter Female No 12/20/24 12:18 HX of Motion Sickness No 12/20/24 12:18 HX of N/V After Surgery No 12/20/24 12:18 Non-Smoker Yes 12/20/24 12:18 Duration of Surgery greater No 12/20/24 12:18 than 60 minutes Number of Risk Factors 1 12/20/24 12:18 PONV Score Low Risk 12/20/24 12:18 Height & Weight Height & Weight: Anesthesia: Height & Weight Height 6 ft 12/26/24 07:17 Weight: 99 kg 12/26/24 07:17 Body Mass Index (BMI) 29.6 12/26/24 07:17 Respiratory Assessment Respiratory Assessment - vegetable cutter: Respiratory Tract Infection Hx - vegetable cutter Hx Respiratory Tract Infection No 12/26/24 07:06 STOP Sleep Apnea STOP Sleep Apnea - vegetable cutter: STOP Sleep Apnea - vegetable cutter Hx Hypertension No 12/26/24 07:06 Hx Sleep Apnea Yes 12/26/24 07:06 CPAP Yes: non compliant 12/26/24 07:06 BIPAP No 12/26/24 07:06 Do you snore loudly (louder than talking or can be heard Do you often feel tired/ fatigued/ sleepy during daytime? Has anyone observed you stop breathing during sleep? STOP Results Positive 12/26/24 07:06 QUESTION #5 FULL TEXT : Do you snore loudly (louder than talking or can be heard through closed doors)? 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 Specify any problems Hx of Preganancy in last 3 N/A 12/20/24 12:18 Months Nurse Filling Out Transfusion [email or web address] 12/20/24 12:18 & Questions: Date: 12/20/24 12/20/24 12:18 Time: 12:19 12/20/24 12:18 Patient unable to answer at this time (ie. confused, unrespo /Reproduction History /Reproductive History - vegetable cutter: /Reproductive Hx- vegetable cutter Hx Now No 12/26/24 07:06 Gestational Age (in weeks): EDC: Hx Hx Para Hx Section SAB No 12/20/24 12:18 Active Medications Active Medications: Current Medications Generic Name Dose Route Start Last Admin Trade Name Freq PRN Reason Stop Dose Admin Lactated Ringer's 1,000 mls @ 15 mls/hr 12/26/24 07:00 12/26/24 07:26 IV 15 mls/hr .Q48H DANDRE Administration PFSH Medical History Sleep apnea Alcohol use High cholesterol Restless legs Back pain History of hiatal hernia Gastric reflux Non-smoker CPAP (continuous positive airway pressure) dependence Pre-syncope BPH (benign prostatic hyperplasia) Chronic abdominal pain TMJ syndrome Encounter for preventative adult health care examination History of deviated nasal septum Home Medications ?Medication ?Instructions ?Recorded ?Last Taken ?Type multivitamin with minerals 1 tab PO DAILY 03/11/1910/12 History omega 2-nrz-mcj-fish oil 60 mg-90 1 cap PO DAILY 05/0812/22/24 History mg-500 mg capsule (Fish Oil) cyclobenzaprine 10 mg tablet 5 - 10 mg (0.5 - 1 x 10 m g) PO TID 06/24/20 Unknown Rx PRN muscle spasm #30 tabs ibuprofen 800 mg tablet 800 mg PO Q8H PRN pain #90 t abs 12/16/20 12/24/24 Rx Lactobacillus acidophilus 250 500 mmu cells PO DAILY 0 04/16/24 12/25/24 History million cell capsule (Probiotic Acidophilus) cholecalciferol (vitamin D3) 125 125 mcg PO DAILY 03/2212/25/24 History mcg (5,000 unit) tablet (Vitamin D3) psyllium husk 3.4 gram/5.4 gram 1 tbsp PO DAILY 12/25/24 History oral powder (Metamucil) Diltiazem 2% / Lidocaine 5% #1 ea 08/21/24 Unknown Rx ointment (compound) omeprazole 40 mg capsule,delayed 40 mg PO QDAY 5 12/26/24 History release ashwagandha extract 500 mg capsule 1,000 mg PO DAILY 1 12/25/24 History Allergy/AdvReac Type Severity Reaction Status Date / Time Penicillins Allergy Hives Verified 12/26/24 07:15 Family History Father Narcolepsy and cataplexy Asthma Grandfather Alcoholism Myocardial infarction Grandmother Myocardial infarction osteporosis Thyroid disorder Mother High cholesterol Surgical History History of appendectomy Social History Smoking Status: Never smoker alcohol intake: current alcohol intake frequency: a few times a week substance use type: does not use what type of physical activity do you participate in: running and weight training frequency: 3-4 times per week Review of Systems (Anesthesia) ROS Narrative System reviewed and no additional complaints, except as documented.
--- NOTE | 2024-12-26 08:00 | EGD_PTH ---
PATIENT: ELOY BOSS LOC: [facility] U#:[id number] AGE/SX: 34/M ROOM: RE12/26/[address]: Dr. Magalys Orellana MD : 1990 BED: DIS: 12/26/2024 SPEC #: [id number] RECD: 12/26/24 10:47 STATUS: MONICA REDipak #: [id number] JEOVANNY: 12/26/24 08:[address]: Magalys Orellana DEPT: SURGICAL PATHOLOGY RECD BY: Mark Agrawal ENTERED: 12/26/24 11:43 SP TYPE: EGD BIOPSY OT DR: Kevin Tate, CHANTEL-C Tissues: A - Gastric mucous membrane B - Esophagus, NOS Procedures: Immunohistochemical Stains Surgery Specimen Level IV HEADER OPERATION: EGD with biopsies PRE-OP DIAGNOSIS: GERD TISSUE SUBMITTED: A- Antrum biopsy, B- GE junction biopsy MICROSCOPIC DIAGNOSIS A. Antrum, biopsy: * Antral mucosa with mild chronic inflammation * The Helicobacter pylori immunostain is negative B. Esophagus, GE junction, biopsy: * Benign squamous epithelium * Cardiac type mucosa with mild chronic inflammation and goblet cells, negative for dysplasia MICROSCOPIC DESCRIPTION Slides are reviewed. All matched controls reacted appropriately. These tests were developed and their performance characteristics determined by [facility]. They may not have been cleared or approved by the U.S. Food and Drug Administration. The FDA has determined that such clearance or approval is not necessary. The above immunohistochemical/dualISH markers are viewed by the Pathologist. GROSS DESCRIPTION A. Received in fixative is one container labeled with the patient's name and designated Antrum biopsy. The specimen consists of one irregular fragment of short tissue that measures 0.2 cm. The specimen is totally submitted in one cassette. B. Received in fixative is one container labeled with the patient's name and designated GE junction biopsy. The specimen consists of one irregular fragment of short tissue that measures 0.7 cm. The specimen is totally submitted in one cassette. AR 12/26/2024 CPT:[id number]
--- NOTE | 2024-12-26 08:17 | OP.EGD_ITS ---
Patient Name: Daniel Valentino Procedure Date: 12/26/2024 7:35 AM Date of : 1990 Age: 34 Procedure: Upper GI endoscopy Indications: Heartburn Providers: Magalys Orellana MD Referring MD: Kevin Tate [facility], Litigation Assistant-c Medicines: Monitored Anesthesia Care Patient Profile: This is a 34 year old male. Complications: No immediate complications. Procedure: Pre-Anesthesia Assessment: - Prior to the procedure, a History and Physical was performed, and patient medications and allergies were reviewed. The patient's tolerance of previous anesthesia was also reviewed. The risks and benefits of the procedure and the sedation options and risks were discussed with the patient. All questions were answered, and informed consent was obtained. Prior Anticoagulants: The patient has taken no anticoagulant or antiplatelet agents. ASA Grade Assessment: Per anesthesia. After reviewing the risks and benefits, the patient was deemed in satisfactory condition to undergo the procedure. After obtaining informed consent, the endoscope was passed under direct vision. Throughout the procedure, the patient's blood pressure, pulse, and oxygen saturations were monitored continuously. The Endoscope was introduced through the mouth, and advanced to the second part of duodenum. The upper GI endoscopy was accomplished without difficulty. The patient tolerated the procedure well. Scope In: 8:04:34 AM Scope Out: 8:10:33 AM Total Procedure Duration Time 0 hours 5 minutes 59 seconds Findings: The Z-line was irregular and was found 40 cm from the incisors. Biopsies were taken with a cold forceps for histology. Mildly erythematous mucosa without bleeding was found in the gastric antrum. Biopsies were taken with a cold forceps for histology. Biopsies were taken with a cold forceps for Helicobacter pylori cultures. The examined duodenum was normal. The cardia and gastric fundus were normal on retroflexion. Impression: - Z-line irregular, 40 cm from the incisors. Biopsied. - Erythematous mucosa in the antrum. Biopsied. - Normal examined duodenum. Recommendation: - Await pathology results. - Discharge patient to home. - Resume previous diet. - Continue present medications. Procedure Code(s): --- Professional --- 60366, Esophagogastroduodenoscopy, flexible, transoral; with biopsy, single or multiple Diagnosis Code(s): --- Professional --- K22.89, Other specified disease of esophagus K31.89, Other diseases of stomach and duodenum R12, Heartburn CPT copyright 2021 [employer]. All rights reserved. The codes documented in this report are preliminary and upon grazing examiner review may be revised to meet current compliance requirements. MD Magalys Osei MD 12/26/2024 8:16:26 AM This report has been signed electronically. Number of Addenda: 0 Note Initiated On: 12/26/2024 7:35 AM
--- NOTE | 2024-12-26 08:17 | OP.PROVAT_ITS ---
12/26/2024 Kevin Tate [facility], Oil Well Gun Perforator Operator-c Re : Upper GI endoscopy procedure for Daniel Valentino Dear Bebeto This procedure was performed on Thursday, December 26, 2024. My impressions and recommendations are as follows: Impressions : - Z-line irregular, 40 cm from the incisors. Biopsied. - Erythematous mucosa in the antrum. Biopsied. - Normal examined duodenum. Recommendations : - Await pathology results. - Discharge patient to home. - Resume previous diet. - Continue present medications. My findings are described in the full procedure note, which is enclosed. If I can be of further assistance, please feel free to contact me at Doctor phone number(s): , Work: . Sincerely, MD Magalys Osei MD 12/26/2024 8:16:26 AM This report has been signed electronically.
--- NOTE | 2024-12-26 08:20 | PCM.POST.ANE ---
Anesthesia: Postop Eval I Current Vital Signs Temperature: 97.8 F Pulse Rate: 78 Blood Pressure: 96/68 Respiratory Rate: 16 Pulse Ox: 96 Oxygen Delivery Method: Room Air Assessment Airway patent: Yes Spontaneous unlabored respirations: Yes Mental status: Asleep nausea: No Vomiting: No Anesthesia Complication: No Fluid Hydration Crystalloid volume administer (ml): 400 Total IV fluid infused: 400 Progress Note Anesthesia document: Postop Eval 1 completed: Yes
--- NOTE | 2024-12-26 12:28 | PCM.POSTANE2 ---
Anesthesia Postop Eval I Sum Postop Eval Completion status Anesthesia document: Postop Eval 1 completed: Yes Anesthesia Postop Eval I Summary Anesthesia Postop Eval I Summary: Anesthesia Postop Eval I: Assessment Summary Airway patent Yes 12/26/24 08:21 [email or web address] Spontaneous unlabored Yes 12/26/24 08:21 [email or web address] respirations Mental status Asleep 12/26/24 08:21 [email or web address] nausea No 12/26/24 08:21 [email or web address] Vomiting No 12/26/24 08:21 [email or web address] Anesthesia Postop Eval I: Fluid Summary Crystalloid volume administer 400 12/26/24 08:21 [email or web address] (ml) Colloids volume administered ( ml) Blood Product volume administered (ml) Total IV fluid infused 400 12/26/24 08:21 [email or web address] Anesthesia Postop Eval I: Summary Notes Anesthesia Complication No 12/26/24 08:21 [email or web address] Anesthesia Complication Comment: Post-operative progress note Anesthesia: Postop Eval II Evaluation Mental status: Awake Pain Level: 1 nausea: No Vomiting: No Complications Anesthesia Complication: No
== END 2024-12-26 09:24 | disposition home or self-care (01) ==
LOC: EN 06:50 → AC 06:51
PROVIDERS: PCP Nurse Practitioner Family; Referring Provider Nurse Practitioner Family; Visit Provider Surgery
PROC: 0DJ08ZZ Inspection of Upper Intestinal Tract, Via Natural or Artificial Opening Endoscopic (ICD-10-PCS; CPT 43235; principal; 2024-12-26 07:55)
DX: K21.9 Gastro-esophageal reflux disease without esophagitis (principal); E78.00 Pure hypercholesterolemia, unspecified; K22.89 Other specified disease of esophagus; Z79.899 Other long term (current) drug therapy; Z90.49 Acquired absence of other specified parts of digestive tract; G47.30 Sleep apnea, unspecified; Z99.89 Dependence on other enabling machines and devices; J32.0 Chronic maxillary sinusitis
CPT/HCPCS: 43239; 88305; 88342; J2405